=== PATIENT | female | born 1965 | race Caucasian/White ===

== ENCOUNTER 2020-08-17 10:53 | Outpatient (REF) | payer MEDICARE, OTHER, SELFPAY ==
--- NOTE | 2020-08-17 10:58 | MM_ITS ---
EXAMINATION: MM SCREENING DIGITAL BREAST TOMOSYNTHESIS, BILATERAL CLINICAL INFORMATION: Screening. Asymptomatic. Intentional weight loss, 100 lbs since prior exam. The lifetime risk of breast cancer based on the Tyrer-Cuzick Model is 17%. COMPARISON: Mammography: 08/12/2019, 07/21/2017 TECHNIQUE: Digital breast tomosynthesis is performed in both the craniocaudal and mediolateral oblique views along with computer-aided detection (CAD). Synthesized 2D images are generated from the tomosynthesis. Additional exaggerated left CC view is provided. FINDINGS: The breasts are almost entirely fatty (ACR BI-RADS breast composition Category a). The breasts are symmetrically decreased in size consistent with the intentional weight loss history. There is no developing density or interval mass or architectural abnormality. No abnormal calcifications. No significant changes. MM/MM tomosynthesis screening BI IMPRESSION: No mammographic evidence of malignancy. ASSESSMENT: BI-RADS 1: Negative RECOMMENDATION: Routine annual mammography screening. This patient's information was entered into a reminder system with a target due date for their next mammogram.
== END 2020-08-17 10:54 | disposition home or self-care (01) ==
LOC: HO.MAMMO 10:53
PROVIDERS: PCP Nurse Practitioner Family; Visit Provider Nurse Practitioner Family
DX: Z12.31 Encounter for screening mammogram for malignant neoplasm of breast (principal)
CPT/HCPCS: 77063; 77067

== ENCOUNTER 2021-04-10 14:09 | Emergency (ER) | payer MEDICARE, OTHER, SELFPAY ==
[2021-04-10 14:24] VITALS: BP 151/84; PULSE 64; RESP 20; TEMP 37.4; O2SAT 97; BMI 28.1
--- NOTE | 2021-04-10 16:04 | ED.DENTAL ---
HPI - Dental/Oral General Chief complaint: Dental/Oral Stated complaint: DENTAL ISSUE CELLULITIS Time Seen by Provider: 04/10/21 16:04 History of Present Illness HPI Narrative: Patient complains of left lower incisor pain for several days, she was told she will need oral surgery for this tooth, denies any difficulty breathing or swallowing, no swelling under the tongue Related Data Previous Rx's Medication Instructions Recorded penicillin V potassium 500 mg 500 mg PO QID 7 Days #28 tab 04/10/21 tablet Allergies Allergy/AdvReac Type Severity Reaction Status Date / Time morphine [MORPHINE] Allergy Unknown PALPITATION Unverified 06/04/20 15:23 S Review of Systems Review of Systems: Positive for dental pain Negatives are no fever no chills no dizziness no headache no neck pain no sore throat no difficulty breathing or swallowing no skin rash Yes all other systems are reviewed and are negative [facility] Past Medical History Source: nursing notes reviewed Medical History (Updated 04/11/21 @ 00:01 by Maureen Yoder) Asthma Hypertension Social History Social History Advance Directives: No Advance Directives Information Provided: No Physical Exam Vital Signs: Vital Signs: Last Vital Signs Temp 99.4 F 04/10/21 14:24 Pulse 64 04/10/21 14:24 Resp 20 04/10/21 14:24 BP 151/84 H 04/10/21 14:24 Pulse Ox 97 04/10/21 14:24 Body Mass Index 28.1 General appearance is no acute distress Head is normocephalic atraumatic The dental exam there is tenderness and decay to left lower incisor, there is no fluctuant abscess on the gum there is no swelling under the tongue no trismus no impairment of breathing and swallowing The pharynx no redness no exudate, no drooling, voice is normal The neck is supple Respiratory no distress Skin no rashes Course Course Course Narrative: Well-appearing patient with dental caries and possibly dental infection is referred to the dentist Discharge Plan Discharge Clinical Impression: Dental caries Patient Disposition: Home, Self-Care Additional Instructions: Follow with dentist for further evaluation Return any time for fever, worse pain and swelling, any worse condition or any concerns Prescriptions: New penicillin V potassium 500 mg tablet 500 mg PO QID 7 Days Qty: 28 RF: 0 Interventions: ED Discharge Assessment Last Done: 04/10/21 16:23 Discharge Date/Time: 04/10/21 16:24
[2021-04-10] MEDS: Penicillin V Potassium 250 MG TABLET 500 MG PO (16:23)
== END 2021-04-10 16:24 | disposition home or self-care (01) ==
PROVIDERS: Emergency Provider Emergency Medicine; PCP Internal Medicine
DX: K02.9 Dental caries, unspecified (principal); K08.89 Other specified disorders of teeth and supporting structures; I10 Essential (primary) hypertension
CPT/HCPCS: 99283

== ENCOUNTER 2022-06-24 12:31 | Outpatient (REF) | payer MEDICARE, SELFPAY ==
--- NOTE | 2022-06-24 | PFT_ITS ---
Forced vital capacity 112%, FEV1 103%, FEV1/FVC ratio is 71. [id number] 82% and MVV 97%. Post bronchodilator therapy, there is significant improvement in FEV1 by 12% and QAS03-82 by 42%. Total lung capacity 122, and residual volume is 117. Diffusion capacity is 92%. CONCLUSION: There is no evidence of Obstructive or Restrictive Disorder . There is a small but significant positive response to bronchodilator therapy. This finding is consistent with possible mild Bronchial asthma / Reactive Airways . Clinical correlation is recommended. MD MARY Preciado/AVINASH / [id number] MTDD
--- NOTE | ~2022-06-24 | MM_ITS ---
EXAMINATION: MM SCREENING DIGITAL BREAST TOMOSYNTHESIS, BILATERAL CLINICAL INFORMATION: Screening. Asymptomatic. The lifetime risk of breast cancer based on the Tyrer-Cuzick Model is 10%. COMPARISON: Mammography: 07/17/2020, 08/12/2019, 07/21/2017 TECHNIQUE: Digital breast tomosynthesis is performed in both the craniocaudal and mediolateral oblique views along with computer-aided detection (CAD). Synthesized 2D images are generated from the tomosynthesis. Additional bilateral CC and left MLO views are provided. FINDINGS: The breasts are almost entirely fatty (ACR BI-RADS breast composition Category a). Background stromal and fibroglandular densities are similar to prior studies. No developing density or interval mass or architectural abnormality. There are scattered round and rim and dermal calcifications. The axilla and skin contours are unremarkable. No significant changes. MM/MM tomosynthesis screening BI IMPRESSION: No mammographic evidence of malignancy. ASSESSMENT: BI-RADS 2: Benign RECOMMENDATION: Routine annual mammography screening. This patient's information was entered into a reminder system with a target due date for their next mammogram.
[2022-06-24 14:46] LABS: Estimated Average Glucose 94 mg/dL; Hemoglobin A1c % 4.9 %
[2022-06-24 15:01] LABS: Alanine Aminotransferase 7 U/L (0-31); Albumin Level 4.3 g/dL (3.5-5.0); Alkaline Phosphatase 52 U/L (39-117); Anion Gap 17 (12-20); Aspartate Amino Transferase 13 U/L (5-31); Bilirubin Total 0.3 mg/dL (0.0-1.0); Blood Urea Nitrogen 11 mg/dL (9-16); Calcium 9.1 mg/dL (8.4-10.2); Carbon Dioxide 27 mmol/L (22-29); Chloride 104 mmol/L (96-108); Cholesterol 176 mg/dL; Estimated Glomerular Filt Rate > 60; Glucose Random 105 mg/dL (60-115); HDL Cholesterol 69 mg/dL; LDL Cholesterol Calculated 93 mg/dl; Potassium 3.7 mmol/L (3.3-5.1); Sodium 144 mmol/L (135-145); Total Protein 6.8 g/dL (6.5-8.0); Triglycerides 73 mg/dL
== END 2022-06-24 12:32 | disposition home or self-care (01) ==
LOC: HO.MAMMO 12:31
PROVIDERS: PCP Registered Nurse; Visit Provider Registered Nurse
DX: Z12.31 Encounter for screening mammogram for malignant neoplasm of breast (principal); R06.02 Shortness of breath; I10 Essential (primary) hypertension; J44.9 Chronic obstructive pulmonary disease, unspecified; E66.9 Obesity, unspecified
CPT/HCPCS: 36415; 77063; 77067; 80053; 80061; 83036; 94060; 94727; 94729

== ENCOUNTER 2022-11-17 09:09 | Outpatient (REF) | payer MEDICARE, SELFPAY ==
--- NOTE | ~2022-11-17 | XR_ITS ---
EXAMINATION: XR PELVIS CLINICAL INFORMATION: Pain COMPARISON: None TECHNIQUE: AP view of the pelvis. FINDINGS: There is severe loss of right hip joint space with sclerosis and periarticular spurring consistent with severe osteoarthritis; mild loss of left hip joint space is seen. No acute fracture or dislocation involving the pelvic bones. The SI joints are symmetrical. XR/XR pelvis 1-2V IMPRESSION: 1. Severe osteoarthritis right hip joint. 2. Mild degenerative changes left hip joint. 3. No visible acute fracture or dislocation seen.
== END 2022-11-17 09:10 | disposition home or self-care (01) ==
LOC: HO.HOSX 09:09
PROVIDERS: Visit Provider Orthopaedic Surgery
DX: M16.11 Unilateral primary osteoarthritis, right hip (principal)
CPT/HCPCS: 72170; 99202

== ENCOUNTER 2023-01-09 21:13 | Emergency (ER) | payer MEDICARE, SELFPAY ==
[2023-01-09 21:44] VITALS: BP 176/92; PULSE 87; RESP 20; TEMP 36.6; O2SAT 95; BMI 26.7
[2023-01-09 23:29] LABS: MANUAL DIFF FLAG NO
[2023-01-09 23:30] LABS: Basophils Absolute Auto 0.1 X10*3/uL (0.0-0.2); Basophils Percent Auto 0.3 % (0-2); Eosinophils Percent Auto 0.1 % (0-4); Hematocrit 40.2 % (37.0-47.0); Hemoglobin 14.3 g/dl (12.0-16.0); Imm Gran Abs Auto 0.14 X10*3/uL (0.00-0.03); Imm Gran Pct Auto 0.6 % (0.0-0.4); Lymphocytes Absolute Auto 2.1 X10*3/uL (1.2-4.9); Lymphocytes Percent Auto 9.8 % (20-40); Mean Corpuscular HGB Conc 35.6 g/dl (31.0-35.0); Mean Corpuscular Hemoglobin 29.6 pg (27.0-33.0); Mean Corpuscular Volume 83.2 fL (80.0-98.0); Mean Platelet Volume 9.2 fL (9.4-12.3); Monocytes Absolute Auto 1.2 X10*3/uL (0.1-1.2); Monocytes Percent Auto 5.3 % (2-11); Neutrophils Absolute Auto 18.2 x10*3/uL (2.0-8.3); Neutrophils Percent Auto 83.9 % (45-73); Platelet Count 249 X10*3/uL (160-400); Red Blood Count 4.83 X10*6/uL (4.20-5.50); Red Cell Distribution Width 12.3 % (11.0-16.0); White Blood Count 21.7 X10*3/uL (4.8-10.8)
[2023-01-09 23:48] LABS: Anion Gap 13 (12-20); Blood Urea Nitrogen 19 mg/dL (9-16); Calcium 9.2 mg/dL (8.4-10.2); Carbon Dioxide 28 mmol/L (22-29); Chloride 102 mmol/L (96-108); Creatinine Clr Calc Pharmacy 79.1; Estimated Glomerular Filt Rate > 60; Glucose Random 104 mg/dL (60-115); Potassium 2.9 mmol/L (3.3-5.1); Sodium 140 mmol/L (135-145)
--- NOTE | 2023-01-10 01:23 | ED_ITS ---
HPI - Nausea/Vomiting/Diarrhea General Chief complaint: Nausea/Vomiting/Diarrhea Stated complaint: dehydrated, ? abcess right leg Time Seen by Provider: 01/10/23 01:21 Source: patient Mode of arrival: ambulatory Limitations: no limitations History of Present Illness HPI Narrative: increased vomiting, no diarrhea. patient feels dehydrated. IN addition she has noticed that her right lower leg is red MD elicited complaint: nausea and vomiting Severity: mild Related Data Home Medications Medication Instructions Recorded Confirmed amlodipine 10 mg tablet 10 mg PO DAILY 11/17/22 budesonide-formoterol HFA 80 2 puff inhalation Q4-6H PRN dyspnea 11/17/22 mcg-4.5 mcg/actuation aerosol inhaler (Symbicort) citalopram 40 mg tablet 40 mg PO DAILY 11/17/22 clonazepam 0.5 mg tablet 0 mg PO 11/17/22 furosemide 40 mg tablet 40 mg PO DAILY 11/17/22 gabapentin 100 mg capsule 100 mg PO TID 11/17/22 lidocaine 5 % topical patch 0 patch topical 11/17/22 (Lidoderm) lisinopril 40 mg tablet 40 mg PO DAILY 11/17/22 loratadine 10 mg tablet 10 mg PO DAILY PRN 11/17/22 naproxen 500 mg tablet 500 mg PO BID 11/17/22 oxycodone 5 mg tablet 5 mg PO Q8H PRN severe pain 11/17/22 tizanidine 4 mg tablet 4 mg PO Q8H PRN 11/17/22 Previous Rx's Medication Instructions Recorded penicillin V potassium 500 mg 500 mg PO QID 7 days #28 tabs 04/10/21 tablet cephalexin 500 mg capsule 500 mg PO Q6H 7 days #28 caps 01/10/23 ondansetron 4 mg disintegrating 4 mg PO Q8H PRN nausea and 01/10/23 tablet vomiting 5 days #20 tabs Allergies Allergy/AdvReac Type Severity Reaction Status Date / Time morphine [MORPHINE] Allergy Unknown PALPITATION Unverified 06/04/20 15:23 S Review of Systems Review of Systems: Yes all other systems are reviewed and are negative Gastrointestinal: Gastrointestinal: Reports vomiting Integumentary/Breasts: Comments: redness to lower leg Neurologic: Denies Sensory deficit (Neuro) [facility] Past Medical History Medical History (Updated 01/10/23 @ 04:27 by Tre Munson MD) Asthma Hypertension Social History Social History (Updated 11/17/22 @ 11:20 by Patti Daniels CMA) Alcohol intake: never Patient Tobacco Use Status: Current everyday Tobacco user Tobacco use type: Cigarette Cigarette Packs Per Day: 1 Smoked in Last 30 Days: Yes Advance Directives: No Advance Directives Information Provided: Yes Current occupational status: disabled Physical Exam Vital Signs: Vital Signs: Last Vital Signs Temp 99.4 F 01/10/23 03:17 Pulse 62 01/10/23 03:17 Resp 16 01/10/23 03:17 BP 138/66 01/10/23 03:17 Pulse Ox 97 01/10/23 03:17 O2 Del Method Room Air 01/10/23 03:17 BMI result Body Mass Index 26.7 Const: Other: female looking older than stated age Nutritional Appearance: average body habitus Orientation/consciousness: oriented to person and patient oriented x3 Limitations: no limitations HEENT: Head: Yes normal to inspection Ears: external ears normal General nose exam: Normal external nose present Mouth: Normal oral and palatal mucosa present and oropharynx normal Throat: Yes posterior oropharynx normal Eyes: General: appearance normal, both eyes and all related structures Neck: Other: supple Neck: Yes normal visual inspection Chest: Chest palpation & inspection: normal inspection of the chest Resp: Auscultation: clear to auscultation bilaterally Cardio: Jugular venous distension: no JVD Rate: regular rate Rhythm: regular rhythm Heart sounds: S1 normal heart sound present and S2 normal heart sound present GI: Inspection: Yes normal to inspection Palpation (GI): Soft to palpation, nontender and No hepatosplenomegaly present Auscultation: normal bowel sounds : General: Yes no CVA tenderness Back/Spine/Pelvis: Back: no CVA tenderness Skin: Other: right leg with erythema and warmth Neuro: General: oriented to person and patient oriented x3 Cranial nerves: Yes CN's II-XII intact bilaterally Motor exam (neuro): 5/5 motor strength present throughout Sensory Exam: No Sensory deficit (Neuro) Extrem: General: Yes normal to inspection Psych: Appearance: grossly normal Course Reevaluation(s) Reevaluation #1: patient hydrated and given zofran and ancef for cellulitis will dc home Time: 04:21 Medications Administered Discontinued Medications Generic Name Dose Route Start Last Admin Trade Name Freq PRN Reason Stop Dose Admin Amlodipine Besylate 10 mg 01/10/23 01:32 01/10/23 02:12 Amlodipine Besylate 10 Mg Tablet PO 01/10/23 01:33 10 mg ONCE ONE Administration Protocol Sodium Chloride 1,000 mls @ 999 mls/hr 01/10/23 01:30 01/10/23 02:44 Ns IVCONT 01/10/23 03:30 Infused .Q1H1M DEANN Infusion Cefazolin Sodium 1 gm/ Sodium 50 mls @ 100 mls/hr 01/10/23 01:30 01/10/23 02:45 Chloride IV 01/10/23 01:59 Infused ONCE ONE Infusion Lisinopril 40 mg 01/10/23 01:32 01/10/23 02:12 Lisinopril 40 Mg Tablet PO 01/10/23 01:33 40 mg ONCE ONE Administration Protocol Ondansetron HCl 4 mg 01/10/23 01:30 01/10/23 02:10 Ondansetron Hcl 4 Mg/2 Ml Vial IVPUSH 01/10/23 01:31 4 mg ONCE ONE Administration Oxycodone HCl 10 mg 01/10/23 01:33 01/10/23 02:12 Oxycodone Hcl Er 10 Mg Tab.Er.12h PO 01/10/23 01:34 10 mg ONCE ONE Administration Potassium Chloride 40 meq 01/10/23 01:30 01/10/23 02:10 Potassium Chloride Er 20 Meq Tab.Er.Prt PO 01/10/23 01:31 40 meq ONCE ONE Administration Medical Decision Making Differential Diagnosis Differential Diagnoses: The differential diagnosis associated with the presentation includes (nausea, vomiting, cellulitis, dehydration) Admission/Observation Consideration of admission/observation: Escalation of care including admission/observation considered (57 yo female with vomiting, weakness and cellulitis, admission was considered) Lab Data MDM Lab Attestation statement: I reviewed the patient's lab results. (WBC 21.7, clinically not septic, potassium repleted) 01/09/23 23:25 01/09/23 23:25 Labs: Lab Results 01/09/23 01/09/23 01/10/23 Range/Units 23:25 23:25 02:57 WBC 21.7 H (4.8-10.8) X10*3/uL RBC 4.83 (4.20-5.50) X10*6/uL Hgb 14.3 (12.0-16.0) g/dl Hct 40.2 (37.0-47.0) % MCV 83.2 (80.0-98.0) fL MCH 29.6 (27.0-33.0) pg MCHC 35.6 H (31.0-35.0) g/dl RDW 12.3 (11.0-16.0) % Plt Count 249 (160-400) X10*3/uL MPV 9.2 L (9.4-12.3) fL Immature Gran % (Auto) 0.6 H (0.0-0.4) % Neut % (Auto) 83.9 H (45-73) % Lymph % (Auto) 9.8 L (20-40) % [place] % (Auto) 5.3 (2-11) % Eos % (Auto) 0.1 (0-4) % Baso % (Auto) 0.3 (0-2) % Lymph # (Auto) 2.1 (1.2-4.9) X10*3/uL [place] # (Auto) 1.2 (0.1-1.2) X10*3/uL Eos # (Auto) 0.0 (0.0-0.4) X10*3/uL Baso # (Auto) 0.1 (0.0-0.2) X10*3/uL Abs Immat Gran (auto) 0.14 H (0.00-0.03) X10*3/uL Absolute Neuts (auto) 18.2 H (2.0-8.3) x10*3/uL Absolute Nucleated RBC 0.000 (0.0-0.012) X10*3/uL Nucleated RBC % (auto) 0.0 (0.0-0.2) /100WBC Sodium 140 (135-145) mmol/L Potassium 2.9 L D (3.3-5.1) mmol/L Chloride 102 (96-108) mmol/L Carbon Dioxide 28 (22-29) mmol/L Anion Gap 13 (12-20) BUN 19 H (9-16) mg/dL Creatinine 0.88 (0.5-1.4) mg/dL Estim Creat Clear Calc 79.1 Estimated GFR > 60 Random Glucose 104 (60-115) mg/dL Calcium 9.2 (8.4-10.2) mg/dL Urine Color Yellow Urine Appearance Clear Urine pH 6.5 (5.0-9.0) Ur Specific [place] <= 1.005 (1.005-1.025) Urine Protein Negative (Neg-Trace) mg/dL Urine Glucose (UA) Negative (Negative) mg/dL Urine Ketones Negative (Negative) mg/dL Urine Blood Negative (Negative) Urine Nitrite Negative (Negative) Ur Leukocyte Esterase Small (1+) H (Negative) Urine RBC 0-2 (0-2) /HPF Urine WBC 6-10 H (0-5) /HPF Ur Squamous Epith Cells 3-5 (0-2) /HPF Urine Bacteria None Seen (None Seen) Hyaline Casts 0-2 (0-2) /LPF Discharge Plan Discharge Clinical Impression: Cellulitis, Dehydration, Nausea & vomiting Patient Disposition: Home, Self-Care Instructions: Dehydration (ED), Cellulitis (ED), Acute Nausea and Vomiting (ED) Prescriptions: New ondansetron 4 mg tablet,disintegrating 4 mg PO Q8H PRN (Reason: nausea and vomiting) 5 Days Qty: 20 0RF cephalexin 500 mg capsule 500 mg PO Q6H 7 Days Qty: 28 0RF No Action penicillin V potassium 500 mg tablet 500 mg PO QID 7 Days Qty: 28 0RF oxycodone 5 mg tablet 5 mg PO Q8H PRN (Reason: severe pain) tizanidine 4 mg tablet 4 mg PO Q8H PRN budesonide-formoterol [Symbicort] 80-4.5 mcg/actuation HFA aerosol inhaler 2 puff inhalation Q4-6H PRN (Reason: dyspnea) clonazepam 0.5 mg tablet 0 mg PO citalopram 40 mg tablet 40 mg PO DAILY naproxen 500 mg tablet 500 mg PO BID loratadine 10 mg tablet 10 mg PO DAILY PRN gabapentin 100 mg capsule 100 mg PO TID furosemide 40 mg tablet 40 mg PO DAILY amlodipine 10 mg tablet 10 mg PO DAILY lisinopril 40 mg tablet 40 mg PO DAILY lidocaine [Lidoderm] 5 % adhesive patch,medicated 0 patch topical
[2023-01-10 01:29] VITALS: BP 150/83; PULSE 56; RESP 19; TEMP 37.3; O2SAT 97
[2023-01-10] MEDS: 0.9 % Sodium Chloride 1,000 ML 999 ML IVCONT ×2 (01:36→02:13)
[2023-01-10] MEDS: ondansetron HCL 4 MG/2 ML VIAL IVPUSH (02:10)
[2023-01-10] MEDS: Potassium Chloride ER 20 MEQ TAB.ER.PRT 40 MEQ PO (02:10)
[2023-01-10] MEDS: lisinopriL 40 MG TABLET PO (02:12)
[2023-01-10] MEDS: amLODIPine Besylate 10 MG TABLET PO (02:12)
[2023-01-10] MEDS: oxyCODONE HCl ER 10 MG TAB.ER.12H PO (02:12)
[2023-01-10 03:10] LABS: Appearance Urine Clear; Color Urine Yellow; Glucose Urine UA Negative (Negative); Leukocyte Esterase Urine Small (1+) (Negative); Nitrite Urine Negative (Negative); PH 6.5 (5.0-9.0); Specific Gravity - Urine <= 1.005 (1.005-1.025); UMIC TRIGGER UACC YES; Urine Blood Negative (Negative); Urine Ketones Negative (Negative); Urine Protein Negative (Neg-Trace)
[2023-01-10 03:17] VITALS: BP 138/66; PULSE 62; RESP 16; TEMP 37.4; O2SAT 97
[2023-01-10 03:22] LABS: Bacteria Urine None Seen (None Seen); Hyaline Casts Urine 0-2 /LPF (0-2); RBC Urine 0-2 /HPF (0-2); UACC Culture Trigger YES
== END 2023-01-10 04:36 | disposition home or self-care (01) ==
PROVIDERS: Emergency Provider Emergency Medicine; PCP Registered Nurse
DX: L03.115 Cellulitis of right lower limb (principal); E86.0 Dehydration; R11.2 Nausea with vomiting, unspecified; I10 Essential (primary) hypertension; F17.210 Nicotine dependence, cigarettes, uncomplicated; Z79.899 Other long term (current) drug therapy
CPT/HCPCS: 36415; 80048; 81001; 85025; 87086; 96361; 96365; 96375; 99284; 99285; J0690; J2405

== ENCOUNTER 2023-06-30 12:22 | Outpatient (REF) | payer MEDICARE, SELFPAY ==
--- NOTE | ~2023-06-30 | MM_ITS ---
EXAMINATION: MM SCREENING DIGITAL BREAST TOMOSYNTHESIS, BILATERAL CLINICAL INFORMATION: Screening. Asymptomatic. COMPARISON: Mammography: This study is compared with prior exams dating back to 2017. TECHNIQUE: Digital breast tomosynthesis is performed in both the craniocaudal and mediolateral oblique views along with computer-aided detection (CAD). Synthesized 2D images are generated from the tomosynthesis. FINDINGS: The breasts are almost entirely fatty (ACR BI-RADS breast composition Category a). There are no significant masses, abnormal calcifications, or other abnormalities. MM/MM tomosynthesis screening BI IMPRESSION: No mammographic evidence of malignancy. ASSESSMENT: BI-RADS BI-RADS 1 - Negative RECOMMENDATION: Routine annual mammography screening. 1 year F/U This examination should not preclude the clinical evaluation of a suspicious palpable abnormality. This patient's information was entered into a reminder system with a target due date for their next mammogram.
== END 2023-06-30 12:23 | disposition home or self-care (01) ==
LOC: HO.MAMMO 12:22
PROVIDERS: PCP Registered Nurse; Visit Provider Internal Medicine
DX: Z12.31 Encounter for screening mammogram for malignant neoplasm of breast (principal)
CPT/HCPCS: 77063; 77067

== ENCOUNTER → 2023-06-30 12:45 | Outpatient (BNV) | payer MEDICARE, SELFPAY | PROVIDERS: PCP Registered Nurse; Visit Provider Radiology Diagnostic Radiology | DX: Z12.31 Encounter for screening mammogram for malignant neoplasm of breast (principal) | CPT/HCPCS: 77063; 77067 ==

== ENCOUNTER 2024-02-25 13:52 | Inpatient (IN) | payer MEDICARE, SELFPAY ==
--- NOTE | ~2024-02-25 | MR_ITS ---
EXAMINATION: MR ABDOMEN WITHOUT CONTRAST CLINICAL INFORMATION: 58-year-old female with abdominal pain and dilated CBD COMPARISON: Ultrasound from 02/25/2020 TECHNIQUE: MR abdomen is performed without gadolinium contrast. FINDINGS: LUNG BASES: The visualized lung bases are unremarkable. LIVER, GALLBLADDER, AND BILIARY TREE: The liver is normal in size, smooth in contour, and normal in signal. No focal hepatic lesion or biliary ductal dilatation is present. Gallbladder is physiologically distended please numerous small stones, without pericolic cystic fluid collection or wall thickening. The gallbladder lumen measured 7.8 x 3.9 cm. CBD is not occluded by stones or sludge, measured between 0.8 and 0.5 cm PANCREAS: Unremarkable. There is mildly dilated pancreatic duct measured approximately 0.3 cm SPLEEN: Unremarkable. ADRENAL GLANDS: Unremarkable. KIDNEYS AND URETERS: The kidneys are normal in size and shape. No hydronephrosis. No perinephric stranding. GASTROINTESTINAL TRACT: No bowel obstruction. No ascites or fluid collection. 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 ABDOMINAL WALL: No significant hernia is appreciated. LYMPH NODES: No lymphadenopathy. VASCULAR: Unremarkable. OSSEOUS STRUCTURES: Marrow signal normal. MR/MR MRCP IMPRESSION: 1. Cholelithiasis without evidence of acute cholecystitis. 2. CBD not occluded by stones or sludge. 3. 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
--- NOTE | ~2024-02-25 | US_ITS ---
EXAMINATION: US ABDOMEN LIMITED CLINICAL INFORMATION: Right upper quadrant pain. Gallstones? COMPARISON: CT abdomen and pelvis 03/29/2020 TECHNIQUE: Real-time imaging of the right upper quadrant abdominal viscera. FINDINGS: PANCREAS: The pancreas is mostly obscured by overlying bowel gas. The pancreatic duct is normal in caliber. LIVER: The liver is normal in size. The liver contour is normal. Parenchymal echogenicity is increased. No focal hepatic lesion. There is no intrahepatic biliary duct dilatation seen. GALLBLADDER: The gallbladder is physiologically distended with multiple shadowing stones. Bladder wall thickness is within normal limits measuring 0.3 cm. No wall edema. No pericholecystic fluid. Positive sonographic Henry's sign. COMMON BILE DUCT: Mildly dilated measuring 0.9 cm without obstructing stone in the visualized portions. RIGHT KIDNEY: Not visualized FREE FLUID: None. US/US abdomen limited IMPRESSION: 1. Cholelithiasis without secondary signs of acute cholecystitis. Of note sonographic Henry's sign is positive. If there is persistent clinical concern for acute cholecystitis, further evaluation with HIDA scan can be considered. 2. Mildly dilated common bile duct measuring 0.9 cm without obstructing stone in the visualized portions.If there is clinical concern for choledocholithiasis, further evaluation with MRCP can be considered. 3. Increased liver echogenicity which can be seen with hepatic steatosis.
--- NOTE | ~2024-02-25 | NM_ITS ---
EXAMINATION: BILIARY TRACT IMAGING STUDY CLINICAL INDICATION: 58-year-old female with abdominal pain, found to have gallstones on the prior abdominal ultrasound done on 03/06/2024 and also confirmed with subsequent MRCP done on the same day. COMPARISON: Right upper quadrant abdominal ultrasound done on 03/06/2024 and MRCP done on 02/26/2024. TECHNIQUE: Scintillation camera images were obtained over the abdomen for an observation of 60 minutes following the intravenous administration of 5.0 millicuries technetium 99m mebrofenin. Subsequent delayed images were also obtained initially up to 2 hours post injection and finally at 4 hours post injection. FINDINGS: There is good concentration of activity in the liver by 5 minutes post injection. Biliary activity is well visualized by 15 minutes, and there is good visualization of small bowel activity by 25 minutes. The gallbladder remains nonvisualized throughout the entire study up to 4 hours post injection. NM/NM hepatobiliary wo pharm IMPRESSION: 1. Nonvisualized gallbladder on the initial and subsequent delayed 4 hours post injection. In the appropriate clinical setting, the finding would be consistent with acute cholecystitis. Possible differential diagnostic consideration would also include physiologically overdistended versus contracted gallbladder and unlikely to be related to chronic cholecystitis or biliary dyskinesia. 2. Patent common bile duct. 3. Liver function appears normal.
[2024-02-25 14:25] VITALS: BP 129/71; PULSE 74; RESP 16; TEMP 36.6; O2SAT 94; BMI 33.3
[2024-02-25 15:46] LABS: MANUAL DIFF FLAG NO
[2024-02-25 16:01] LABS: Basophils Absolute Auto 0.1 X10*3/uL (0.0-0.2); Basophils Percent Auto 0.7 % (0-2); Eosinophils Absolute Auto 0.1 X10*3/uL (0.0-0.4); Eosinophils Percent Auto 1.4 % (0-4); Hematocrit 36.5 % (37.0-47.0); Hemoglobin 13.4 g/dl (12.0-16.0); Imm Gran Abs Auto 0.05 X10*3/uL (0.00-0.03); Imm Gran Pct Auto 0.6 % (0.0-0.4); Lymphocytes Absolute Auto 2.2 X10*3/uL (1.2-4.9); Lymphocytes Percent Auto 25.3 % (20-40); Mean Corpuscular HGB Conc 36.7 g/dl (31.0-35.0); Mean Corpuscular Hemoglobin 31.1 pg (27.0-33.0); Mean Corpuscular Volume 84.7 fL (80.0-98.0); Mean Platelet Volume 9.2 fL (9.4-12.3); Monocytes Absolute Auto 0.6 X10*3/uL (0.1-1.2); Monocytes Percent Auto 6.8 % (2-11); Neutrophils Absolute Auto 5.8 x10*3/uL (2.0-8.3); Neutrophils Percent Auto 65.2 % (45-73); Platelet Count 317 X10*3/uL (160-400); Red Blood Count 4.31 X10*6/uL (4.20-5.50); Red Cell Distribution Width 12.3 % (11.0-16.0); White Blood Count 8.8 X10*3/uL (4.8-10.8)
--- NOTE | 2024-02-25 16:03 | ED_ITS ---
HPI - General Adult General Chief complaint: Abdominal Pain Stated complaint: Abd pain Time Seen by Provider: 02/25/24 21:22 Source: patient Mode of arrival: ambulatory Limitations: no limitations History of Present Illness ED Provider: Dr. Kevin Puckett HPI narrative: 58-year-old female with a history of hypertension, depression, chronic right hip pain on oxycodone who presents emergency department for evaluation nausea and diarrheal stools for 1-2 week and right upper quadrant pain x 3 days with inability to hold down food or fluid secondary to pain. Patient states that approximately 2 weeks prior she had nausea with 2-3 loose stools per day. She states that over the last 3 days she has had right upper quadrant pain which she describes as a sharp severe pain that does radiate to her back. She states she has not been able to eat any food for 3 days since it exacerbates the pain. She states the pain is 8/10 at its worst of the time my evaluation the pain was 6/10. She denied fever, chills, sore throat, cough, chest pain, shortness of breath. She denied frequency, urgency or dysuria. Related Data Home Medications ?Medication ?Instructions ?Recorded ?Confirmed budesonide-formoterol HFA 80 2 puff inhalation Q4-6H PRN dyspnea 11/17/22 02/26/24 mcg-4.5 mcg/actuation aerosol inhaler (Symbicort) citalopram 40 mg tablet 40 mg PO DAILY 11/17/22 02/26/24 furosemide 40 mg tablet 40 mg PO DAILY 11/17/22 02/26/24 loratadine 10 mg tablet 10 mg PO DAILY Allergy Symptoms 11/17/22 02/26/24 naproxen 500 mg tablet 500 mg PO BID 11/17/22 02/26/24 tizanidine 4 mg tablet 4 mg PO Q8H Muscle Spasm 11/17/22 02/26/24 chlorthalidone 25 mg tablet 25 mg PO QAM 02/26/24 02/26/24 cholecalciferol (vitamin D3) 50 50 mcg PO DAILY 02/26/24 02/26/24 mcg (2,000 unit) capsule (Vitamin D3) diphenhydramine HCl 25 mg tablet 25 mg PO BEDTIME 02/26/24 02/26/24 gabapentin 300 mg capsule 300 mg PO TID 02/26/24 02/26/24 melatonin 10 mg tablet 10 - 20 mg PO BEDTIME 02/26/24 02/26/24 mirtazapine 7.5 mg tablet 7.5 mg PO BEDTIME 02/26/24 02/26/24 nifedipine 30 mg tablet,extended 30 mg PO QAM 02/26/24 02/26/24 release 24 hr olmesartan 40 mg tablet 40 mg PO QAM 02/26/24 02/26/24 oxycodone 15 mg tablet,crush 15 mg PO Q12H 02/26/24 02/26/24 resistant,extended release 12 hr (OxyContin) Allergies Allergy/AdvReac Type Severity Reaction Status Date / Time morphine [MORPHINE] Allergy Unknown PALPITATION Verified 02/25/24 14:28 S Review of Systems 2 Review of Systems: Yes all other systems are reviewed and are negative [facility] Past Medical History [facility] Narrative: Social history: The patient denies alcohol and drug use. She smokes 1 pack of cigarettes per day times 40 years. Medical History Asthma Hypertension Social History Social History Alcohol intake: current Alcohol intake frequency: holidays/special occasions only Patient Tobacco Use Status: Current everyday Tobacco user Tobacco use type: Cigarette Cigarette Packs Per Day: 1 Smoked in Last 30 Days: Yes Use of substances other than those prescribed or required for medical reasons: Yes Substance Use Type: Marijuana Substance Use Frequency: Daily Advance Directives: No Advance Directives Information Provided: No Do you have a plan to hurt others: No Plan Nutrition Risks: No Nutritional Risk Patient : No Current occupational status: disabled Physical Exam ED Vital Signs: Vital Signs - 24 hr 02/25/24 14:25 02/25/24 20:00 02/25/24 22:00 Temperature 97.8 F 99.2 F 98.2 F Pulse Rate 74 65 60 Respiratory Rate 16 Blood Pressure 129/71 146/111 H 139/76 Pulse Oximetry 94 97 95 Oxygen Delivery Method Room Air Room Air Room Air 02/25/24 22:16 Temperature Pulse Rate Respiratory Rate 18 Blood Pressure Pulse Oximetry Oxygen Delivery Method BMI result Body Mass Index 33.3 Vital signs were normal Exam: General: Awake, alert in no distress, weight 90.7 kg, elevated BMI 33.3 Head: Normocephalic, atraumatic EENT: PERRL, Lids normal, sclera normal, conjunctiva normal, nose normal , ears normal, throat without erythema or exudates Neck: Supple, no adenopathy Lung: breath sounds symmetric, no wheezing, rales or rhonchi Chest: symmetric movement, nontender Heart: regular rate and rhythm, normal S1, S2 no murmurs or rubs Abdomen: Mild to moderate right upper quadrant tenderness, negative Henry sign, no rebound, no voluntary or involuntary guarding, normoactive bowel sounds Back: no vertebral tenderness, no CVAT Extremities: no deformities, moves all extremities symmetrically Neuro: Awake, alert, oriented, normal speech Psych: Pleasant, cooperative Course Course Course Narrative: RME: Done by KATHYA Szymanski 58 yold female presents to the ED for RUQ pain. positive RUQ tenderness on palpation. labs ultrasdoun ordered. Medications Administered Generic Name Dose Route Start Last Admin Trade Name Freq PRN Reason Stop Dose Admin Hydromorphone HCl 1 mg 02/25/24 23:11 02/26/24 04:47 Hydromorphone Hcl 1 Mg/Ml Syringe IVPUSH 1 mg Q4H PRN Administration Pain, Severe (Pain Scale 7-10) Protocol Piperacillin Sod/Tazobactam 100 mls @ 200 mls/hr 02/25/24 23:15 02/26/24 06:19 Sod 4.5 gm/ Sodium Chloride IV Infused Q6H DEANN Infusion Sodium Chloride 3 ml 02/26/24 00:00 02/26/24 08:40 0.9 % Sodium Chloride Flush 3 Ml Syringe IVFLUSH 3 ml QSHIFT DEANN Administration Discontinued Medications Generic Name Dose Route Start Last Admin Trade Name Freq PRN Reason Stop Dose Admin Hydromorphone HCl 1 mg 02/25/24 21:43 02/25/24 22:16 Hydromorphone Hcl 1 Mg/Ml Syringe IVPUSH 02/25/24 21:44 1 mg ONCE STA Administration Protocol Hydromorphone HCl 1.5 mg 02/26/24 04:53 02/26/24 05:31 Hydromorphone Hcl 2 Mg/Ml Vial IVPUSH 02/26/24 04:54 1.5 mg ONCE ONE Administration Protocol Sodium Chloride 1,000 mls @ 999 mls/hr 02/25/24 21:43 02/26/24 00:00 Ns IV 02/25/24 22:43 Infused .Q1H1M STA Infusion Potassium Chloride 10 meq in 100 mls @ 100 mls/hr 02/25/24 23:15 02/26/24 05:35 Potassium Chloride/H20 IV 02/26/24 03:14 Infused Q1H DEANN Infusion Nicotine 21 mg 02/25/24 22:58 02/26/24 00:03 Nicotine 21 Mg Patch.Td24 TRANSDERMA 02/25/24 22:59 21 mg ONCE ONE Administration Ondansetron HCl 4 mg 02/25/24 21:43 02/25/24 22:15 Ondansetron Hcl 4 Mg/2 Ml Vial IVPUSH 02/25/24 21:44 4 mg ONCE ONE Administration Medical Decision Making Medical Decision Making MDM Narrative: 58-year-old female with a history of hypertension, depression and chronic right hip pain on oxycodone who presents emergency department for evaluation of 2 weeks of nausea with diarrheal stools and 3 days of right upper quadrant pain with nausea, vomiting inability eat for 3 days secondary to pain. Patient's pain was 8/10 at its worse and 6/10 at the time of my evaluation. Vital signs were normal. Exam did reveal mild to moderate right upper quadrant tenderness with a negative Henry sign otherwise unremarkable. Differential diagnosis: ?Includes but is not limited to acute cholecystitis, choledocholithiasis, pancreatitis, gastritis, GERD, electrolyte abnormalities, anemia Following evaluation was ordered: CBC, CMP, lipase, quantitative beta-hCG, urinalysis, right upper quadrant ultrasound Patient was initially treated with the following: Dilaudid 1 mg IV, Zofran 4 mg IV, normal saline x1 L Course: 21:53 My interpretation patient's laboratory evaluation as follows: WBC was normal 8800. Sodium, potassium and chloride were low 132, 3.2, 93. LFTs were normal. Bilirubin was normal. Lipase was normal. Right upper quadrant ultrasound was positive for gallstones and a positive Henry sign. Common bile duct was mildly dilated at 0.9 mL with no clear stone seen in the duct. Patient has hepatic steatosis The patient's presentation is concerning for acute cholecystitis, given her constant right upper quadrant pain x3 days her right upper quadrant tenderness and her inability to eat x3 days, I will discuss disposition with our covering surgeon. 22:58 I did discuss the patient's presentation with the covering general surgeon, Dr. Grant. She was concerned that the patient may have a retained biliary stone that may be acting as a ball valve letting some bilirubin through and this would explain why her LFTs and bilirubin are normal. She felt that the patient should be admitted for GI consult, MRCP and she will consult for surgery. The patient did feel better after the above treatment. Patient's presentation was discussed over tiger text with the covering hospitalist, Dr. Betancourt. Admission/Observation Consideration of admission/observation: Escalation of care including admission/observation considered Consult Healthcare Provider Management of the patient was discussed with: Hospitalist (Dr. Betancourt) and Record Center Coordinator (Dr. Grant) Lab Data MDM Lab Attestation statement: I reviewed the patient's lab results. 02/26/24 05:33 02/26/24 05:33 Labs: Lab Results 02/25/24 02/25/24 Range/Units 15:39 21:00 WBC 8.8 (4.8-10.8) X10*3/uL RBC 4.31 (4.20-5.50) X10*6/uL Hgb 13.4 (12.0-16.0) g/dl Hct 36.5 L (37.0-47.0) % MCV 84.7 (80.0-98.0) fL MCH 31.1 (27.0-33.0) pg MCHC 36.7 H (31.0-35.0) g/dl RDW 12.3 (11.0-16.0) % Plt Count 317 D (160-400) X10*3/uL MPV 9.2 L (9.4-12.3) fL Immature Gran % (Auto) 0.6 H (0.0-0.4) % Neut % (Auto) 65.2 (45-73) % Lymph % (Auto) 25.3 (20-40) % [place] % (Auto) 6.8 (2-11) % Eos % (Auto) 1.4 (0-4) % Baso % (Auto) 0.7 (0-2) % Lymph # (Auto) 2.2 (1.2-4.9) X10*3/uL [place] # (Auto) 0.6 (0.1-1.2) X10*3/uL Eos # (Auto) 0.1 (0.0-0.4) X10*3/uL Baso # (Auto) 0.1 (0.0-0.2) X10*3/uL Abs Immat Gran (auto) 0.05 H (0.00-0.03) X10*3/uL Absolute Neuts (auto) 5.8 (2.0-8.3) x10*3/uL Absolute Nucleated RBC 0.000 (0.0-0.012) X10*3/uL Nucleated RBC % (auto) 0.0 (0.0-0.2) /100WBC Sodium 132 L (135-145) mmol/L Potassium 3.2 L (3.3-5.1) mmol/L Chloride 93 L (96-108) mmol/L Carbon Dioxide 24 (22-29) mmol/L Anion Gap 18 (12-20) BUN 9 (9-16) mg/dL Creatinine 1.37 (0.5-1.4) mg/dL Estim Creat Clear Calc 50.4 Estimated GFR 40 Random Glucose 93 (60-115) mg/dL Calcium 10.5 H D (8.4-10.2) mg/dL Total Bilirubin 0.5 (0.0-1.0) mg/dL AST 16 (5-31) U/L ALT 8 (0-31) U/L Alkaline Phosphatase 52 (39-117) U/L Total Protein 7.6 (6.5-8.0) g/dL Albumin 4.5 (3.5-5.0) g/dL Lipase 24 (8-78) U/L Beta HCG, Quant 4 mIU/mL Urine Color Yellow Urine Appearance Clear Urine pH 8.5 (5.0-9.0) Ur Specific [place] 1.010 (1.005-1.025) Urine Protein Negative (Neg-Trace) mg/dL Urine Glucose (UA) Negative (Negative) mg/dL Urine Ketones Trace (Negative) mg/dL Urine Blood Negative (Negative) Urine Nitrite Negative (Negative) Ur Leukocyte Esterase Moderate (2+) H (Negative) Urine RBC 0-2 (0-2) /HPF Urine WBC 11-20 H (0-5) /HPF Ur Squamous Epith Cells 3-5 (0-2) /HPF Urine Bacteria Trace (None Seen) Hyaline Casts 0-2 (0-2) /LPF Radiology Impression Discussion of test interpretation with radiology: I have reviewed the radiologist's reading. Radiologist Impression: US abdomen limited IMPRESSION: 1. Cholelithiasis without secondary signs of acute cholecystitis. Of note sonographic Henry's sign is positive. If there is persistent clinical concern for acute cholecystitis, further evaluation with HIDA scan can be considered. 2. Mildly dilated common bile duct measuring 0.9 cm without obstructing stone in the visualized portions.If there is clinical concern for choledocholithiasis, further evaluation with MRCP can be considered. 3. Increased liver echogenicity which can be seen with hepatic steatosis. Dictated By: Mark Douglas Chronic Conditions Patient?s care impacted by: Hypertension Discharge Plan Discharge Clinical Impression: Biliary colic, Common bile duct dilatation Nausea & vomiting Qualifiers: Vomiting type: unspecified Qualified Code(s): R11.2 - Nausea with vomiting, unspecified Diarrhea Qualifiers: Diarrhea type: unspecified type Qualified Code(s): R19.7 - Diarrhea, unspecified Patient Disposition: Admitted As Inpatient
[2024-02-25 16:20] LABS: Alanine Aminotransferase 8 U/L (0-31); Albumin Level 4.5 g/dL (3.5-5.0); Alkaline Phosphatase 52 U/L (39-117); Anion Gap 18 (12-20); Aspartate Amino Transferase 16 U/L (5-31); Bilirubin Total 0.5 mg/dL (0.0-1.0); Blood Urea Nitrogen 9 mg/dL (9-16); Calcium 10.5 mg/dL (8.4-10.2); Carbon Dioxide 24 mmol/L (22-29); Chloride 93 mmol/L (96-108); Creatinine Clr Calc Pharmacy 50.4; Estimated Glomerular Filt Rate 40; Glucose Random 93 mg/dL (60-115); Lipase 24 U/L (8-78); Potassium 3.2 mmol/L (3.3-5.1); Sodium 132 mmol/L (135-145); Total Protein 7.6 g/dL (6.5-8.0)
[2024-02-25 16:21] LABS: HCG Quantitative 4 mIU/mL
[2024-02-25 20:00] VITALS: BP 146/111; PULSE 65; TEMP 37.3; O2SAT 97
[2024-02-25 21:31] LABS: Appearance Urine Clear; Color Urine Yellow; Glucose Urine UA Negative (Negative); Leukocyte Esterase Urine Moderate (2+) (Negative); Nitrite Urine Negative (Negative); PH 8.5 (5.0-9.0); UMIC TRIGGER UACC YES; Urine Blood Negative (Negative); Urine Ketones Trace mg/dL (Negative); Urine Protein Negative (Neg-Trace)
[2024-02-25 21:36] LABS: Bacteria Urine Trace (None Seen); Hyaline Casts Urine 0-2 /LPF (0-2); RBC Urine 0-2 /HPF (0-2); UACC Culture Trigger YES
[2024-02-25 22:00] VITALS: BP 139/76; PULSE 60; TEMP 36.8; O2SAT 95
[2024-02-25] MEDS: ondansetron HCL 4 MG/2 ML VIAL IVPUSH (22:15)
[2024-02-25 22:16] VITALS: RESP 18
[2024-02-25] MEDS: HYDROmorphone HCl 1 MG/ML SYRINGE IVPUSH (22:16)
[2024-02-25] MEDS: 0.9 % Sodium Chloride 1,000 ML 999 ML IV (22:18)
--- NOTE | 2024-02-25 23:10 | P.HPHOSP_ITS ---
History of Present Illness Date of Service: 02/25/24 Chief Complaint: Abdominal pain This is a 58-year-old female with pertinent history of asthma not on home oxygen, mood disorder, hypertension who presents to the emergency department for evaluation of abdominal pain. Patient states she has been having diarrhea and nausea that started 2 weeks ago. The diarrhea is now resolved. Patient started having right upper quadrant pain 3 days prior to presentation. It is intermittent and worse with p.o. intake. It is nonradiating and without any relieving factors. Never has had similar pain in the past. Unable to tolerate p.o. intake. Patient states the pain is progressively worse and was severe on the day of presentation and hence she decided to come to the ER. No fever, chills, chest discomfort, palpitations, shortness of breath, changes in urinary or bowel habits. The emergency department, sonographic Henry signs positive and cholelithiasis seen with dilated common bile duct. Review of Systems 2 Constitutional: Constitutional: Reports fatigue and Reports poor appetite Respiratory: Respiratory: Reports no additional respiratory complaints Gastrointestinal: Gastrointestinal: Reports diarrhea, Reports nausea and Reports vomiting Genitourinary: Genitourinary: Reports no additional female genitourinary complaints Endocrine: Endocrine: Reports fatigue PMFSH Medical History Asthma Hypertension Pertinent family history: No family history of early CAD Social History Alcohol intake: never Patient Tobacco Use Status: Current everyday Tobacco user Tobacco use type: Cigarette Cigarette Packs Per Day: 1 Advance Directives: No Advance Directives Information Provided: No Do you have a plan to hurt others: No Plan Current occupational status: disabled Meds Allergies Allergy/AdvReac Type Severity Reaction Status Date / Time morphine [MORPHINE] Allergy Unknown PALPITATION Verified 02/25/24 14:28 S Home Medications ?Medication ?Instructions ?Recorded ?Confirmed ?Last Taken ?Type amlodipine 10 mg tablet 10 mg PO DAILY 11/17/22 02/26/24 Unknown History budesonide-formoterol HFA 80 2 puff inhalation Q4-6H PRN dyspnea 11/17/22 02/26/24 Unknown History mcg-4.5 mcg/actuation aerosol inhaler (Symbicort) citalopram 40 mg tablet 40 mg PO DAILY 11/17/22 02/26/24 Unknown History furosemide 40 mg tablet 40 mg PO DAILY 11/17/22 02/26/24 Unknown History gabapentin 100 mg capsule 300 mg PO TID 11/17/22 02/26/24 Unknown History (Neurontin) lidocaine 5 % topical patch 0 patch topical 11/17/22 Unknown History (Lidoderm) lisinopril 40 mg tablet 40 mg PO DAILY 11/17/22 02/26/24 Unknown History loratadine 10 mg tablet 10 mg PO DAILY PRN Allergy Symptoms 11/17/22 02/26/24 Unknown History naproxen 500 mg tablet 500 mg PO BID 11/17/22 02/26/24 Unknown History oxycodone 5 mg tablet 15 mg PO Q8H PRN severe pain 11/17/22 02/26/24 Unknown History tizanidine 4 mg tablet 4 mg PO Q8H PRN Muscle Spasm 11/17/22 02/26/24 Unknown History chlorthalidone 25 mg tablet 25 mg PO QAM 02/26/24 02/26/24 Unknown History mirtazapine 7.5 mg tablet 7.5 mg PO BEDTIME 02/26/24 02/26/24 Unknown History nifedipine 30 mg tablet,extended 30 mg PO QAM 02/26/24 02/26/24 Unknown History release 24 hr Physical Exam 2 Vital Signs and Narrative: Vital Signs: Last Vital Signs Temp 98.2 F 02/25/24 22:00 Pulse 60 02/25/24 22:00 Resp 18 02/25/24 22:16 BP 139/76 02/25/24 22:00 Pulse Ox 95 02/25/24 22:00 O2 Del Method Room Air 02/25/24 22:00 BMI result Body Mass Index 33.3 Middle-aged female lying in bed in no distress Neck supple, no JVD Regular rate and rhythm, S1-S2 heard Regular breath sounds bilaterally, no wheezing or crackles appreciated Abdomen with right upper quadrant tenderness, no guarding, no rigidity Patient is awake, alert and oriented to self, place, time and person ; no focal motor deficit Psych: Normal mood No pedal edema Results Labs 02/25/24 15:39 02/25/24 15:39 Labs: Laboratory Results - last 24 hr 02/25/24 02/25/24 15:39 21:00 MCV 84.7 MCH 31.1 MCHC 36.7 H RDW 12.3 Plt Count 317 D MPV 9.2 L Immature Gran % (Auto) 0.6 H Neut % (Auto) 65.2 Lymph % (Auto) 25.3 [place] % (Auto) 6.8 Eos % (Auto) 1.4 Baso % (Auto) 0.7 Lymph # (Auto) 2.2 [place] # (Auto) 0.6 Eos # (Auto) 0.1 Baso # (Auto) 0.1 Abs Immat Gran (auto) 0.05 H Absolute Neuts (auto) 5.8 Absolute Nucleated RBC 0.000 Nucleated RBC % (auto) 0.0 Anion Gap 18 Estim Creat Clear Calc 50.4 Estimated GFR 40 Random Glucose 93 Calcium 10.5 H D Total Bilirubin 0.5 AST 16 ALT 8 Alkaline Phosphatase 52 Total Protein 7.6 Albumin 4.5 Lipase 24 Beta HCG, Quant 4 Urine Color Yellow Urine Appearance Clear Urine pH 8.5 Ur Specific [place] 1.010 Urine Protein Negative Urine Glucose (UA) Negative Urine Ketones Trace Urine Blood Negative Urine Nitrite Negative Ur Leukocyte Esterase Moderate (2+) H Urine RBC 0-2 Urine WBC 11-20 H Ur Squamous Epith Cells 3-5 Urine Bacteria Trace Hyaline Casts 0-2 Imaging Radiologist's Impressions: Impressions Abdomen Ultrasound 02/25/24 15:23 IMPRESSION: 1. Cholelithiasis without secondary signs of acute cholecystitis. Of note sonographic Henry's sign is positive. If there is persistent clinical concern for acute cholecystitis, further evaluation with HIDA scan can be considered. 2. Mildly dilated common bile duct measuring 0.9 cm without obstructing stone in the visualized portions.If there is clinical concern for choledocholithiasis, further evaluation with MRCP can be considered. 3. Increased liver echogenicity which can be seen with hepatic steatosis. Assessment and Plan (1) Biliary colic: Status: Acute (2) Common bile duct dilatation: Status: Acute Plan This is a 58-year-old female with pertinent history of asthma not on home oxygen, mood disorder, hypertension who presents to the emergency department for evaluation of abdominal pain. #. Biliary colic with concerns for acute calculous cholecystitis. Will admit patient with empiric IV antibiotics. Dilated CBD noted on ultrasound. Will obtain MRCP to rule out CBD stone. GI consult in case of choledocholithiasis pending MRCP results. IV opioids p.r.n. for pain control. Also obtaining HIDA. General surgery consulted #. Hypokalemia due to GI losses: Repleted #. Asthma: No decompensation during admission. Continue home inhaler #. Mood disorder: Continue home mood stabilizers #. Hypertension: Continue home antihypertensives Med rec pending DVT prophylaxis: Mechanical Full code Admit as inpatient and will require two night minimum hospital stay for IV antibiotics, IV opiates (as above), which is not possible in a lesser acute setting. Surgical consult pending Quality Stroke Does the patient have a stroke diagnosis?: No VTE Prior VTE?: No VTE Risk Level:: Medical - moderate - high VTE Device Contraindication: N/A - Device Ordered VTE Drug Contraindication: Treatment Not Indicated
[2024-02-26] VITALS (8 sets, daily range): BP systolic 96–132; BP diastolic 52–63; PULSE 53–58; RESP 16–20; TEMP 36.2–36.9; O2SAT 90–98
[2024-02-26] MEDS: Piperacillin Sodium/Tazobactam 4.5 GM in 0.9 % Sodium Chloride 100 ML IV ×5 (00:01→22:25)
[2024-02-26] MEDS: Nicotine 21 MG PATCH.TD24 TRANSDERMA (00:03)
[2024-02-26] MEDS: Potassium Chloride/H20 10 MEQ/100 ML PIGGYBACK 100 MEQ IV ×4 (00:04→02:58)
[2024-02-26] MEDS: 0.9 % Sodium Chloride Flush 3 ML SYRINGE IVFLUSH ×4 (00:38→22:25)
[2024-02-26] MEDS: HYDROmorphone HCl 1 MG/ML SYRINGE IVPUSH ×5 (00:41→19:24)
--- NOTE | 2024-02-26 04:19 | MHC.EDTECH ---
This tech took over care of patient at this time,hourly rounds completed,call clement in reach
--- NOTE | 2024-02-26 04:50 | PC.NURSE ---
this rn assumed care of pt, pt transported from em to main ed. pt at this time reporting 7/10 abdominal pain, pt medicated per nov. no acute distress noted.
--- NOTE | 2024-02-26 04:58 | PC.NURSE ---
pt reporting prn medication does not work, placed one time order, okayed to give in 30 minutes.
[2024-02-26] MEDS: HYDROmorphone HCl 2 MG/ML VIAL 1.5 MG IVPUSH (05:31)
[2024-02-26 05:46] LABS: MANUAL DIFF FLAG NO
[2024-02-26 05:56] LABS: Basophils Absolute Auto 0.1 X10*3/uL (0.0-0.2); Basophils Percent Auto 0.7 % (0-2); Eosinophils Absolute Auto 0.2 X10*3/uL (0.0-0.4); Eosinophils Percent Auto 2.1 % (0-4); Hematocrit 33.6 % (37.0-47.0); Hemoglobin 12.3 g/dl (12.0-16.0); Imm Gran Abs Auto 0.05 X10*3/uL (0.00-0.03); Imm Gran Pct Auto 0.6 % (0.0-0.4); Lymphocytes Absolute Auto 2.9 X10*3/uL (1.2-4.9); Lymphocytes Percent Auto 36.4 % (20-40); Mean Corpuscular HGB Conc 36.6 g/dl (31.0-35.0); Mean Corpuscular Hemoglobin 31.5 pg (27.0-33.0); Mean Corpuscular Volume 85.9 fL (80.0-98.0); Mean Platelet Volume 9.2 fL (9.4-12.3); Monocytes Absolute Auto 0.7 X10*3/uL (0.1-1.2); Monocytes Percent Auto 8.3 % (2-11); Neutrophils Absolute Auto 4.2 x10*3/uL (2.0-8.3); Neutrophils Percent Auto 51.9 % (45-73); Platelet Count 274 X10*3/uL (160-400); Red Blood Count 3.91 X10*6/uL (4.20-5.50); Red Cell Distribution Width 12.5 % (11.0-16.0); White Blood Count 8.1 X10*3/uL (4.8-10.8)
[2024-02-26 06:13] LABS: Anion Gap 12 (12-20); Blood Urea Nitrogen 8 mg/dL (9-16); Calcium 9.3 mg/dL (8.4-10.2); Carbon Dioxide 23 mmol/L (22-29); Chloride 102 mmol/L (96-108); Estimated Glomerular Filt Rate 49; Glucose Random 86 mg/dL (60-115); Potassium 3.4 mmol/L (3.3-5.1); Sodium 134 mmol/L (135-145)
--- NOTE | 2024-02-26 06:17 | PC.NURSE ---
Addendum entered by Bridgett De La Garza 02/26/24 06:18: aware Original Note: at this time, pt reports pain medication is not working, reports constant 7/10 abdominal pain.
--- NOTE | 2024-02-26 06:33 | MHC.EDTECH ---
Hourly rounds and vitals completed,call clement in reach
--- NOTE | 2024-02-26 07:33 | PM.CNGS ---
History of Present Illness Consult details Consult date: 02/26/24 Narrative: Patient is a 58-year-old female who presents with a history of 2 weeks of nonspecific abdominal complaints which over the last 2-3 days which had associated nausea and vomiting and loose stool/diarrhea which has resolved. Now her symptoms have become right upper quadrant abdominal pain radiating around to her back. She does not recall having such symptoms before. She denies any history of jaundice. She is unclear if she has fatty food intolerance per se. Chart was reviewed and patient evaluated. Mood disorder, hypertension. Labs essentially within normal limits PMFSH Past Medical History Medical History Asthma Hypertension Social History Social History Alcohol intake: current Alcohol intake frequency: holidays/special occasions only Patient Tobacco Use Status: Current everyday Tobacco user Tobacco use type: Cigarette Cigarette Packs Per Day: 1 Smoked in Last 30 Days: Yes Use of substances other than those prescribed or required for medical reasons: Yes Substance Use Type: Marijuana Substance Use Frequency: Daily Advance Directives: No Advance Directives Information Provided: No Do you have a plan to hurt others: No Plan Nutrition Risks: No Nutritional Risk Patient : No Current occupational status: disabled Meds Allergies Allergy/AdvReac Type Severity Reaction Status Date / Time morphine [MORPHINE] Allergy Unknown PALPITATION Verified 02/25/24 14:28 S Active Medications: Current Medications Acetaminophen (Acetaminophen 325 Mg Tablet) 650 mg PO Q6H PRN PRN Reason: Pain, Mild (Pain Scale 1-3) Hydromorphone HCl (Hydromorphone Hcl 1 Mg/Ml Syringe) 1 mg IVPUSH Q4H PRN; Protocol PRN Reason: Pain, Severe (Pain Scale 7-10) Last Admin: 02/26/24 04:47 Dose: 1 mg Piperacillin Sod/Tazobactam (Sod 4.5 gm/ Sodium Chloride) 100 mls @ 200 mls/hr IV Q6H [facility] Last Infusion: 02/26/24 06:19 Dose: Infused Melatonin (Melatonin 3 Mg Tablet) 6 mg PO BEDTIME PRN PRN Reason: Insomnia Ondansetron HCl (Ondansetron Hcl 4 Mg/2 Ml Vial) 4 mg IVPUSH Q8H PRN PRN Reason: Nausea and Vomiting Sodium Chloride (0.9 % Sodium Chloride Flush 3 Ml Syringe) 3 ml IVFLUSH QSHIFT [facility] Last Admin: 02/26/24 00:38 Dose: 3 ml Home Medications ?Medication ?Instructions ?Recorded ?Confirmed ?Last Taken ?Type amlodipine 10 mg tablet 10 mg PO DAILY 11/17/22 02/26/24 Unknown History budesonide-formoterol HFA 80 2 puff inhalation Q4-6H PRN dyspnea 11/17/22 02/26/24 Unknown History mcg-4.5 mcg/actuation aerosol inhaler (Symbicort) citalopram 40 mg tablet 40 mg PO DAILY 11/17/22 02/26/24 Unknown History furosemide 40 mg tablet 40 mg PO DAILY 11/17/22 02/26/24 Unknown History gabapentin 100 mg capsule 300 mg PO TID 11/17/22 02/26/24 Unknown History (Neurontin) lidocaine 5 % topical patch 0 patch topical 11/17/22 Unknown History (Lidoderm) lisinopril 40 mg tablet 40 mg PO DAILY 11/17/22 02/26/24 Unknown History loratadine 10 mg tablet 10 mg PO DAILY PRN Allergy Symptoms 11/17/22 02/26/24 Unknown History naproxen 500 mg tablet 500 mg PO BID 11/17/22 02/26/24 Unknown History oxycodone 5 mg tablet 15 mg PO Q8H PRN severe pain 11/17/22 02/26/24 Unknown History tizanidine 4 mg tablet 4 mg PO Q8H PRN Muscle Spasm 11/17/22 02/26/24 Unknown History chlorthalidone 25 mg tablet 25 mg PO QAM 02/26/24 02/26/24 Unknown History mirtazapine 7.5 mg tablet 7.5 mg PO BEDTIME 02/26/24 02/26/24 Unknown History nifedipine 30 mg tablet,extended 30 mg PO QAM 02/26/24 02/26/24 Unknown History release 24 hr Physical Exam Vital Signs: Vital Signs: Last Vital Signs Temp 97.8 F 02/26/24 06:32 Pulse 56 02/26/24 06:32 Resp 18 02/26/24 06:32 BP 105/52 L 02/26/24 06:32 Pulse Ox 97 02/26/24 06:32 O2 Del Method Room Air 02/26/24 06:32 BMI result Body Mass Index 33.3 Chest: Other: Chest breath sounds bilaterally, HS 1 in 2 GI: Other: Abdomen very corpulent, mild right upper quadrant tenderness. No evidence of any guarding, rebound, or rigidity. Results Labs 02/26/24 05:33 02/26/24 05:33 Labs: Abnormal lab results 02/25/24 02/25/24 02/26/24 Range/Units 15:39 21:00 05:33 RBC 3.91 L (4.20-5.50) X10*6/uL Hct 36.5 L 33.6 L (37.0-47.0) % MCHC 36.7 H 36.6 H (31.0-35.0) g/dl MPV 9.2 L 9.2 L (9.4-12.3) fL Immature Gran % (Auto) 0.6 H 0.6 H (0.0-0.4) % Abs Immat Gran (auto) 0.05 H 0.05 H (0.00-0.03) X10*3/uL Sodium 132 L 134 L (135-145) mmol/L Potassium 3.2 L (3.3-5.1) mmol/L Chloride 93 L (96-108) mmol/L BUN 8 L (9-16) mg/dL Calcium 10.5 H D (8.4-10.2) mg/dL Ur Leukocyte Esterase Moderate (2+) H (Negative) Urine WBC 11-20 H (0-5) /HPF Short CBC 02/25/24 02/26/24 Range/Units 15:39 05:33 WBC 8.8 8.1 (4.8-10.8) X10*3/uL Hgb 13.4 12.3 (12.0-16.0) g/dl Hct 36.5 L 33.6 L (37.0-47.0) % Plt Count 317 D 274 (160-400) X10*3/uL BMP 02/25/24 02/26/24 15:39 05:33 Sodium 132 L 134 L Potassium 3.2 L 3.4 Chloride 93 L 102 Carbon Dioxide 24 23 BUN 9 8 L Creatinine 1.37 1.15 Calcium 10.5 H D 9.3 D Liver Function 02/25/24 Range/Units 15:39 Total Bilirubin 0.5 (0.0-1.0) mg/dL AST 16 (5-31) U/L ALT 8 (0-31) U/L Alkaline Phosphatase 52 (39-117) U/L Albumin 4.5 (3.5-5.0) g/dL Urine 02/25/24 Range/Units 21:00 Urine Color Yellow Urine Appearance Clear Urine pH 8.5 (5.0-9.0) Ur Specific [place] 1.010 (1.005-1.025) Urine Protein Negative (Neg-Trace) mg/dL Urine Glucose (UA) Negative (Negative) mg/dL All other labs normal. Assessment and Plan (1) Common bile duct dilatation: Status: Acute (2) Biliary colic: Status: Acute Plan Ultrasound demonstrated cholelithiasis. Patient also has dilation of her common bile duct. She is tentatively scheduled for both HIDA scan and an MRCP. Further interventions and studies will be directed by the patient's clinical course and the results of the above-mentioned studies. Procedures Date of Service Date of Service: 02/26/24
--- NOTE | 2024-02-26 08:15 | PHA.MEDREC ---
Pharmacy Consult ? Medication Reconciliation Pharmacy has completed the medication reconciliation. spoke with patient to confirm medications. The only medication she takes as needed is symbicort.
[2024-02-26 08:48] LABS: Alanine Aminotransferase 10 U/L (0-31); Alkaline Phosphatase 47 U/L (39-117); Aspartate Amino Transferase 21 U/L (5-31); Bilirubin Direct 0.2 mg/dL (0.0-0.5); Bilirubin Total 0.6 mg/dL (0.0-1.0); C Reactive Protein < 0.10 mg/dL (< or = 0.50); Total Protein 6.7 g/dL (6.5-8.0)
--- NOTE | 2024-02-26 08:51 | PC.NURSE ---
Pt currently in MRI
[2024-02-26] MEDS: Escitalopram Oxalate 20 MG TABLET PO (10:09)
[2024-02-26] MEDS: oxyCODONE HCl ER 10 MG TAB.ER.12H PO ×2 (10:09→21:21)
[2024-02-26] MEDS: Loratadine 10 MG TABLET PO (10:10)
[2024-02-26] MEDS: Gabapentin 300 MG CAPSULE PO ×2 (10:10→21:21)
[2024-02-26] MEDS: Cholecalciferol (Vitamin D3) 25 MCG TABLET 50 MCG PO (10:10)
[2024-02-26] MEDS: TiZANidine HCL 4 MG TABLET PO ×2 (11:51→23:44)
--- NOTE | 2024-02-26 12:03 | PC.NURSE ---
this RN resumed care of pt at 1100. a&ox4. vss and up to date. pt verbalizing no pain at this time s/p previous medication administration. delay in medication administration d/t med not being available in [facility]. medication now administered per provider order since delivered from pharmacy. pt remains NPO aside from extremely small sips of water w/ PO medication. per previous RN - medication ok'd to administer via PO w/ water by admitting provider. pt verbalizes no water intake since yesterday around noon and no food consumption x 3 days aside from 1 popsicle. pt aware of plan of care moving forward in regards to being admitted/getting nuclear med scan performed around 1500. pt resting comfortably in bed inn no apparent distress. no sob/wob noted. respirations even/unlabored. partner bedside for support. call clement placed within reach.
--- NOTE | 2024-02-26 12:22 | PM.EVENT ---
Event Note Date of Service: 02/26/24 Event Note: Day hospitalist update S: feels better; RUQ a little sore; no N/V; no fever did eat a fatty meal prior to all of her symptoms starting O: Temp Pulse Resp BP Pulse Ox O2 Del Method 97.8 F 56 20 105/52 L 97 Room Air 02/26/24 06:32 02/26/24 06:32 02/26/24 10:10 02/26/24 06:32 02/26/24 06:32 02/26/24 06:32 Gen: in no acute distress HEENT: sclera anicteric, moist mucus membranes Neck: supple Lungs: clear to auscultation bilaterally Heart: regular rate and rhythm, no murmurs Abd: soft, RUQ minimally tender, Henry's negative, non-distended Ext: no edema Skin: warm/well-perfused Neuro: alert and oriented x3, no focal findings Psych: appropriate affect Impressions Abdomen Ultrasound 02/25/24 15:23 IMPRESSION: 1. Cholelithiasis without secondary signs of acute cholecystitis. Of note sonographic Henry's sign is positive. If there is persistent clinical concern for acute cholecystitis, further evaluation with HIDA scan can be considered. 2. Mildly dilated common bile duct measuring 0.9 cm without obstructing stone in the visualized portions.If there is clinical concern for choledocholithiasis, further evaluation with MRCP can be considered. 3. Increased liver echogenicity which can be seen with hepatic steatosis. Cholangiopancreatography MRI 02/26/24 09:08 IMPRESSION: 1. Cholelithiasis without evidence of acute cholecystitis. 2. CBD not occluded by stones or sludge. 3. 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 A/P: d1 58yo F with asthma not on home O2, mood disorder, HTN presenting with 3d of nausea/vomitinig and RUQ pain, concerning for cholecystitis cholelithiasis with biliary colic dilated CBD - MRCP with normal CBD, HIDA pending, Surgery + GI consulted - currently NPO + on Zosyn but if HIDA negative, will advance diet and d/c antibiotics hypoK - repleted mood disorder - escitalopram, mirtazapine chronic pain - oxycodone, tizanidine, gabapentin VTE ppx - SCDs dispo - eventual home In my clinical judgment, the patient requires continued hospitalization for the following reasons: work up for acute cholecystitis + choledocholithiasis Time Spent With Patient Time: Total time managing care of this patient today ____ minutes.
--- NOTE | 2024-02-26 14:34 | PC.NURSE ---
admission worksheet complete. pt being transported upstairs at this time.
--- NOTE | 2024-02-26 16:26 | MHC.CM.PN ---
CM ATTEMPTED TO SEE PT X2 PT OFF UNIT FOR A SCAN CM TO REVISIT
[2024-02-26] MEDS: LORazepam 1 MG TABLET PO (19:22)
[2024-02-26] MEDS: diphenhydrAMINE HCL 25 MG CAPSULE PO (21:21)
[2024-02-26] MEDS: Mirtazapine 7.5 MG TABLET PO (21:21)
[2024-02-26] MEDS: ondansetron HCL 4 MG/2 ML VIAL IVPUSH (21:24)
--- NOTE | 2024-02-27 02:12 | CONS_ITS ---
DATE OF SERVICE: 02/26/2024 REFERRING PHYSICIAN: Dr. Sinha REASON FOR CONSULTATION: Dilated common bile duct. HISTORY OF PRESENT ILLNESS: Poly is a very pleasant 58-year-old woman who was admitted to the hospital after presenting to the emergency room yesterday with complaints of abdominal pain. She reports of a 2-week history of some GI symptoms with nausea without vomiting and some diarrhea, which was nonbloody intermittently over the last 2 weeks and developed some right upper quadrant pain several days prior to admission, which radiated around into the back and prompted her emergency room presentation. She denies any fevers or chills. In the emergency department, she was evaluated with laboratory studies, which showed normal liver function tests. Ultrasound imaging was subsequently obtained, which was reviewed and is interpreted as showing mild biliary ductal dilation to 9 mm. Gallstones were noted in the gallbladder and a sonographic Henry sign was present. She subsequently underwent MRI, which is reviewed. This showed no common bile duct stones and measured the CBD between 5 and 8 mm. PAST MEDICAL HISTORY: 1. Asthma. 2. Hypertension. 3. Mood disorder. 4. Osteoarthritis. CURRENT MEDICATIONS: List is reviewed in the chart. ALLERGIES: MORPHINE. FAMILY HISTORY: This is reviewed with the patient and is noncontributory. SOCIAL HISTORY: She does smoke. She denies other substance use. REVIEW OF SYSTEMS: SKIN: No pruritus. HEENT: Negative. CARDIOPULMONARY: No shortness of breath or chest pain. GASTROINTESTINAL: As above. GENITOURINARY: Negative. NEUROPSYCHIATRIC: Negative. PHYSICAL EXAMINATION: GENERAL: Shows a pleasant female, lying comfortably in bed. VITAL SIGNS: Reviewed in electronic medical record and are stable. SKIN: Anicteric. HEENT: Shows no scleral icterus. NECK: Without lymphadenopathy or thyromegaly. LUNGS: Clear. HEART: Shows regular rate and rhythm. S1, S2. No murmur. ABDOMEN: Soft without focal masses or tenderness. Bowel sounds are present. No organomegaly is noted. EXTREMITIES: Without edema. LABORATORY DATA AND IMAGING STUDIES: Reviewed. IMPRESSION: Abnormal ultrasound of the biliary tree. I discussed with her that her MRI, which is more sensitive that examining the bile duct in total looks normal and no stones were seen in the common bile duct. I did discuss ERCP with her but I am not recommending this currently. She is being evaluated from a surgical standpoint and will likely need a cholecystectomy during this hospitalization. Thanks for asking me to see her. I will follow her in the hospital with you. MD CHARLOTTE Magaña/AVINASH / [phone]
[2024-02-27 03:38] VITALS: BP 140/98; PULSE 78; RESP 17; TEMP 36.2; O2SAT 92
[2024-02-27] MEDS: Piperacillin Sodium/Tazobactam 4.5 GM in 0.9 % Sodium Chloride 100 ML IV (04:37)
[2024-02-27 06:24] LABS: Alanine Aminotransferase 12 U/L (0-31); Alkaline Phosphatase 44 U/L (39-117); Anion Gap 17 (12-20); Aspartate Amino Transferase 22 U/L (5-31); Bilirubin Total 0.5 mg/dL (0.0-1.0); Blood Urea Nitrogen 12 mg/dL (9-16); Calcium 9.4 mg/dL (8.4-10.2); Carbon Dioxide 26 mmol/L (22-29); Chloride 102 mmol/L (96-108); Creatinine Clr Calc Pharmacy 45.1; Estimated Glomerular Filt Rate 35; Glucose Random 71 mg/dL (60-115); Potassium 3.7 mmol/L (3.3-5.1); Sodium 141 mmol/L (135-145); Total Protein 6.7 g/dL (6.5-8.0)
[2024-02-27 06:27] LABS: Hematocrit 35.5 % (37.0-47.0); Hemoglobin 12.3 g/dl (12.0-16.0); Mean Corpuscular HGB Conc 34.6 g/dl (31.0-35.0); Mean Corpuscular Hemoglobin 30.8 pg (27.0-33.0); Mean Corpuscular Volume 88.8 fL (80.0-98.0); Mean Platelet Volume 9.5 fL (9.4-12.3); Platelet Count 281 X10*3/uL (160-400); Red Cell Distribution Width 12.6 % (11.0-16.0); White Blood Count 7.3 X10*3/uL (4.8-10.8)
[2024-02-27] MEDS: 0.9 % Sodium Chloride Flush 3 ML SYRINGE IVFLUSH ×2 (07:04→22:18)
[2024-02-27 07:07] VITALS: BP 146/79; PULSE 70; RESP 16; TEMP 36.4; O2SAT 95
[2024-02-27] MEDS: Gabapentin 300 MG CAPSULE PO ×3 (08:18→21:00)
[2024-02-27] MEDS: Cholecalciferol (Vitamin D3) 25 MCG TABLET 50 MCG PO (08:19)
[2024-02-27] MEDS: TiZANidine HCL 4 MG TABLET PO ×3 (08:19→23:43)
[2024-02-27] MEDS: oxyCODONE HCl ER 10 MG TAB.ER.12H PO ×2 (08:19→21:03)
[2024-02-27] MEDS: Loratadine 10 MG TABLET PO (08:19)
[2024-02-27] MEDS: Escitalopram Oxalate 20 MG TABLET PO (08:19)
[2024-02-27] MEDS: HYDROmorphone HCl 1 MG/ML SYRINGE IVPUSH ×3 (08:32→22:18)
[2024-02-27] MEDS: Lactated Ringers 1,000 ML 150 ML IVCONT ×2 (08:36→17:16)
--- NOTE | 2024-02-27 09:51 | MHC.CM.PN ---
IMM DELIVERED. PATIENT LIVES IN A HOME W/ . AMBULATES W/ A ROLLATOR. OTHERWISE INDEPENDENT. PCP [facility] STATISTICAL TECHNICIAN NO HCP. CM PROVIDED EDUCATION AND OFFERED ASSISTANCE. PATIENT DECLINED. DP: HOME SELF CARE, TO TRANSPORT. DO NOT ANTICIPATE THE NEED FOR SERVICES. CM WILL CONTINUE TO FOLLOW.
--- NOTE | 2024-02-27 10:08 | P.PNIM_ITS ---
Subjective Subjective Date of Service: 02/27/24 Interval History: very minimal RUQ pain; no N/V/fever/diarrhea Review of Systems Review of Systems: Yes all other systems are reviewed and are negative Physical Exam 2 Vital Signs: Vital Signs: Last Vital Signs Temp 97.5 F 02/27/24 07:07 Pulse 70 02/27/24 07:07 Resp 16 02/27/24 07:07 BP 146/79 H 02/27/24 07:07 Pulse Ox 95 02/27/24 07:07 O2 Del Method Room Air 02/27/24 07:07 BMI result Body Mass Index 33.3 Gen: in no acute distress HEENT: sclera anicteric, moist mucus membranes Neck: supple Lungs: clear to auscultation bilaterally Heart: regular rate and rhythm, no murmurs Abd: soft, RUQ minimally tender, Henry's negative, non-distended Ext: no edema Skin: warm/well-perfused Neuro: alert and oriented x3, no focal findings Psych: appropriate affect Objective Data Active Medications Acetaminophen (Acetaminophen 325 Mg Tablet) 650 mg PO Q6H PRN PRN Reason: Pain, Mild (Pain Scale 1-3) Albuterol/Ipratropium (Albuterol/Iprat 2.5/0.5mg 3 Ml Ampul.Neb) 3 ml INHALE RQ4H WHILE AWAKE PRN PRN Reason: Dyspnea Diphenhydramine HCl (Diphenhydramine Hcl 25 Mg Capsule) 25 mg PO BEDTIME [facility] Last Admin: 02/26/24 21:21 Dose: 25 mg Documented By: ASHTYN Escitalopram Oxalate (Escitalopram Oxalate 20 Mg Tablet) 20 mg PO DAILY [facility] Last Admin: 02/27/24 08:19 Dose: 20 mg Documented By: NICKY Gabapentin (Gabapentin 300 Mg Capsule) 300 mg PO TID [facility] Last Admin: 02/27/24 08:18 Dose: 300 mg Documented By: NICKY Hydromorphone HCl (Hydromorphone Hcl 1 Mg/Ml Syringe) 1 mg IVPUSH Q4H PRN; Protocol PRN Reason: Pain, Severe (Pain Scale 7-10) Last Admin: 02/27/24 08:32 Dose: 1 mg Documented By: NICKY Piperacillin Sod/Tazobactam (Sod 4.5 gm/ Sodium Chloride) 100 mls @ 200 mls/hr IV Q6H [facility] Last Infusion: 02/27/24 05:10 Dose: Infused Documented By: ASHTYN Lactated Ringer's (Lr) 1,000 mls @ 150 mls/hr IVCONT .Q6H40M [facility] Last Admin: 02/27/24 08:36 Dose: 150 mls/hr Documented By: NICKY Loratadine (Loratadine 10 Mg Tablet) 10 mg PO DAILY [facility] Last Admin: 02/27/24 08:19 Dose: 10 mg Documented By: NICKY Lorazepam (Lorazepam 1 Mg Tablet) 1 mg PO ONCE PRN PRN Reason: anxiety before HIDA scan Last Admin: 02/26/24 19:22 Dose: 1 mg Documented By: ASHTYN Melatonin (Melatonin 3 Mg Tablet) 6 mg PO BEDTIME PRN PRN Reason: Insomnia Mirtazapine (Mirtazapine 7.5 Mg Tablet) 7.5 mg PO BEDTIME [facility] Last Admin: 02/26/24 21:21 Dose: 7.5 mg Documented By: ASHTYN Ondansetron HCl (Ondansetron Hcl 4 Mg/2 Ml Vial) 4 mg IVPUSH Q8H PRN PRN Reason: Nausea and Vomiting Last Admin: 02/26/24 21:24 Dose: 4 mg Documented By: ASHTYN Oxycodone HCl (Oxycodone Hcl Er 10 Mg Tab.Er.12h) 10 mg PO Q12H [facility] Last Admin: 02/27/24 08:19 Dose: 10 mg Documented By: NICKY Sodium Chloride (0.9 % Sodium Chloride Flush 3 Ml Syringe) 3 ml IVFLUSH QSHIFT [facility] Last Admin: 02/27/24 07:04 Dose: 3 ml Documented By: NICKY Tizanidine HCl (Tizanidine Hcl 4 Mg Tablet) 4 mg PO Q8H [facility] Last Admin: 02/27/24 08:19 Dose: 4 mg Documented By: NICKY Vitamin D (Cholecalciferol (Vitamin D3) 25 Mcg Tablet) 50 mcg PO DAILY [facility] Last Admin: 02/27/24 08:19 Dose: 50 mcg Documented By: NICKY Labs 02/27/24 05:20 02/27/24 05:20 Labs: Laboratory Results - last 24 hr 06/11/24 05:20 MCV 88.8 MCH 30.8 MCHC 34.6 RDW 12.6 Plt Count 281 MPV 9.5 Absolute Nucleated RBC 0.000 Nucleated RBC % (auto) 0.0 Anion Gap 17 Estim Creat Clear Calc 45.1 Estimated GFR 35 Random Glucose 71 Calcium 9.4 Total Bilirubin 0.5 AST 22 ALT 12 Alkaline Phosphatase 44 Total Protein 6.7 Albumin 4.0 Microbiology Microbiology Results: Microbiology 02/25/24 Unknown Urine Culture - Final Urine clean catch - Urine rapp top Assessment and Plan (1) Biliary colic: Status: Acute Plan d2 58yo F with asthma not on home O2, mood disorder, HTN presenting with 3d of nausea/vomiting and RUQ pain, concerning for cholecystitis with positive Henry sign though no wall thickening or pericholecystic fluid; CBD dilated to 9mm on US but on MRCP completely normal cholelithiasis with biliary colic - doubt cholecystitis though HIDA pending; d/c Zosyn; advance diet to clears; will need outpt cholecystectomy JUDY - give IV fluids, recheck BMP in AM hypoK - repleted mood disorder - escitalopram, mirtazapine chronic pain - oxycodone, tizanidine, gabapentin VTE ppx - SCDs dispo - eventual home In my clinical judgment, the patient requires continued inpatient hospitalization for the following reasons: IV fluids for JUDY Total time managing care of this patient today: 35 minutes. Quality Stroke Does the patient have a stroke diagnosis?: No VTE Prior VTE?: No VTE Risk Level:: Medical - moderate - high VTE Device Contraindication: N/A - Device Ordered VTE Drug Contraindication: Treatment Not Indicated
[2024-02-27 15:10] VITALS: BP 131/71; PULSE 69; RESP 16; TEMP 36.6; O2SAT 92
[2024-02-27 19:12] VITALS: BP 123/60; PULSE 72; RESP 18; TEMP 36.3; O2SAT 93
[2024-02-27] MEDS: diphenhydrAMINE HCL 25 MG CAPSULE PO (21:00)
[2024-02-27] MEDS: Mirtazapine 7.5 MG TABLET PO (21:00)
[2024-02-27 23:48] VITALS: BP 141/87; PULSE 66; RESP 16
[2024-02-28] MEDS: Lactated Ringers 1,000 ML 150 ML IVCONT (01:05)
[2024-02-28 03:54] VITALS: BP 148/72; PULSE 72; RESP 18; TEMP 36.4; O2SAT 95
[2024-02-28] MEDS: HYDROmorphone HCl 1 MG/ML SYRINGE IVPUSH (04:14)
[2024-02-28 06:13] LABS: Anion Gap 10 (12-20); Blood Urea Nitrogen 8 mg/dL (9-16); Calcium 9.1 mg/dL (8.4-10.2); Carbon Dioxide 27 mmol/L (22-29); Chloride 100 mmol/L (96-108); Creatinine Clr Calc Pharmacy 68.3; Estimated Glomerular Filt Rate 56; Glucose Random 83 mg/dL (60-115); Sodium 134 mmol/L (135-145)
[2024-02-28 07:17] VITALS: BP 131/73; PULSE 60; RESP 18; TEMP 36.6; O2SAT 94
[2024-02-28] MEDS: Potassium Chloride ER 20 MEQ TAB.ER.PRT 40 MEQ PO (07:54)
[2024-02-28] MEDS: oxyCODONE HCl ER 10 MG TAB.ER.12H PO (07:54)
[2024-02-28] MEDS: Escitalopram Oxalate 20 MG TABLET PO (07:54)
[2024-02-28] MEDS: Gabapentin 300 MG CAPSULE PO (07:55)
[2024-02-28] MEDS: Cholecalciferol (Vitamin D3) 25 MCG TABLET 50 MCG PO (07:55)
[2024-02-28] MEDS: Loratadine 10 MG TABLET PO (07:55)
[2024-02-28] MEDS: TiZANidine HCL 4 MG TABLET PO (07:55)
--- NOTE | 2024-02-28 08:25 | PM.PNGS ---
Subjective Subjective Date of Service: 02/27/24 Interval history: Patient evaluated this morning. She states her right upper quadrant symptoms have markedly improved. Official reading of HIDA scan still pending. Patient is hungry and also does not want to proceed with surgical intervention for gallbladder despite a lengthy discussion regarding the risks, benefits and alternatives of conservative therapy and laparoscopic possible open cholecystectomy. Physical Exam Vital Signs: Vital Signs: Last Vital Signs Temp 97.9 F 02/28/24 07:17 Pulse 60 02/28/24 07:17 Resp 18 02/28/24 07:17 BP 131/73 02/28/24 07:17 Pulse Ox 94 02/28/24 07:17 O2 Del Method Room Air 02/28/24 07:17 BMI result Body Mass Index 33.3 GI: Other: Very corpulent abdomen. Mild right upper quadrant tenderness. No evidence of any guarding, rebound, rigidity. Objective Data Active Medications Acetaminophen (Acetaminophen 325 Mg Tablet) 650 mg PO Q6H PRN PRN Reason: Pain, Mild (Pain Scale 1-3) Albuterol/Ipratropium (Albuterol/Iprat 2.5/0.5mg 3 Ml Ampul.Neb) 3 ml INHALE RQ4H WHILE AWAKE PRN PRN Reason: Dyspnea Diphenhydramine HCl (Diphenhydramine Hcl 25 Mg Capsule) 25 mg PO BEDTIME [facility] Last Admin: 02/27/24 21:00 Dose: 25 mg Documented By: ASHTYN Escitalopram Oxalate (Escitalopram Oxalate 20 Mg Tablet) 20 mg PO DAILY [facility] Last Admin: 02/28/24 07:54 Dose: 20 mg Documented By: NICKY Gabapentin (Gabapentin 300 Mg Capsule) 300 mg PO TID [facility] Last Admin: 02/28/24 07:55 Dose: 300 mg Documented By: NICKY Hydromorphone HCl (Hydromorphone Hcl 1 Mg/Ml Syringe) 1 mg IVPUSH Q4H PRN; Protocol PRN Reason: Pain, Severe (Pain Scale 7-10) Last Admin: 02/28/24 04:14 Dose: 1 mg Documented By: SUYAPA Loratadine (Loratadine 10 Mg Tablet) 10 mg PO DAILY [facility] Last Admin: 02/28/24 07:55 Dose: 10 mg Documented By: NICKY Lorazepam (Lorazepam 1 Mg Tablet) 1 mg PO ONCE PRN PRN Reason: anxiety before HIDA scan Last Admin: 02/26/24 19:22 Dose: 1 mg Documented By: ASHTYN Melatonin (Melatonin 3 Mg Tablet) 6 mg PO BEDTIME PRN PRN Reason: Insomnia Mirtazapine (Mirtazapine 7.5 Mg Tablet) 7.5 mg PO BEDTIME [facility] Last Admin: 02/27/24 21:00 Dose: 7.5 mg Documented By: ASHTYN Ondansetron HCl (Ondansetron Hcl 4 Mg/2 Ml Vial) 4 mg IVPUSH Q8H PRN PRN Reason: Nausea and Vomiting Last Admin: 02/26/24 21:24 Dose: 4 mg Documented By: ASHTYN Oxycodone HCl (Oxycodone Hcl Er 10 Mg Tab.Er.12h) 10 mg PO Q12H [facility] Last Admin: 02/28/24 07:54 Dose: 10 mg Documented By: NICKY Sodium Chloride (0.9 % Sodium Chloride Flush 3 Ml Syringe) 3 ml IVFLUSH QSHIFT [facility] Last Admin: 02/28/24 07:57 Dose: Not Given Documented By: NICKY Non-Admin Reason: IV Running Tizanidine HCl (Tizanidine Hcl 4 Mg Tablet) 4 mg PO Q8H [facility] Last Admin: 02/28/24 07:55 Dose: 4 mg Documented By: NICKY Vitamin D (Cholecalciferol (Vitamin D3) 25 Mcg Tablet) 50 mcg PO DAILY [facility] Last Admin: 02/28/24 07:55 Dose: 50 mcg Documented By: NICKY Labs 02/27/24 05:20 02/28/24 05:27 Labs: Laboratory Results - last 24 hr 02/28/24 05:27 Hold Purple Top SEE NOTE Anion Gap 10 L Estim Creat Clear Calc 68.3 Estimated GFR 56 Random Glucose 83 Calcium 9.1 Microbiology Microbiology Results: Microbiology 02/25/24 Unknown Urine Culture - Final Urine clean catch - Urine rapp top Procedures Date of Service Date of Service: 02/28/24 Progress Note: A&P Assessment and plan (1) Biliary colic: Status: Acute Plan As noted above, patient does not want any surgical intervention at this time. Wishes to be treated conservatively. Diet will be advanced as tolerated. To follow. Time Spent With Patient Time: Total time managing care of this patient today ____ minutes. Quality Stroke Does the patient have a stroke diagnosis?: No VTE Prior VTE?: No VTE Risk Level:: Medical - moderate - high VTE Device Contraindication: N/A - Device Ordered VTE Drug Contraindication: Treatment Not Indicated
--- NOTE | 2024-02-28 08:26 | PM.PNGS ---
Subjective Subjective Date of Service: 02/28/24 Interval history: Patient's abdominal symptoms are minimum at present. She tolerated liquid diet yesterday. Still hungry. Does not wished to have any surgical intervention. Official read of HIDA scan still pending. Physical Exam Vital Signs: Vital Signs: Last Vital Signs Temp 97.9 F 02/28/24 07:17 Pulse 60 02/28/24 07:17 Resp 18 02/28/24 07:17 BP 131/73 02/28/24 07:17 Pulse Ox 94 02/28/24 07:17 O2 Del Method Room Air 02/28/24 07:17 BMI result Body Mass Index 33.3 GI: Other: Exam is essentially status quo from yesterday. Very corpulent abdomen. Very mild right upper quadrant tenderness but no evidence of any guarding, rebound, rigidity. Objective Data Active Medications Acetaminophen (Acetaminophen 325 Mg Tablet) 650 mg PO Q6H PRN PRN Reason: Pain, Mild (Pain Scale 1-3) Albuterol/Ipratropium (Albuterol/Iprat 2.5/0.5mg 3 Ml Ampul.Neb) 3 ml INHALE RQ4H WHILE AWAKE PRN PRN Reason: Dyspnea Diphenhydramine HCl (Diphenhydramine Hcl 25 Mg Capsule) 25 mg PO BEDTIME [facility] Last Admin: 02/27/24 21:00 Dose: 25 mg Documented By: ASHTYN Escitalopram Oxalate (Escitalopram Oxalate 20 Mg Tablet) 20 mg PO DAILY [facility] Last Admin: 02/28/24 07:54 Dose: 20 mg Documented By: NICKY Gabapentin (Gabapentin 300 Mg Capsule) 300 mg PO TID [facility] Last Admin: 02/28/24 07:55 Dose: 300 mg Documented By: NICKY Hydromorphone HCl (Hydromorphone Hcl 1 Mg/Ml Syringe) 1 mg IVPUSH Q4H PRN; Protocol PRN Reason: Pain, Severe (Pain Scale 7-10) Last Admin: 02/28/24 04:14 Dose: 1 mg Documented By: SUYAPA Loratadine (Loratadine 10 Mg Tablet) 10 mg PO DAILY [facility] Last Admin: 02/28/24 07:55 Dose: 10 mg Documented By: NICKY Lorazepam (Lorazepam 1 Mg Tablet) 1 mg PO ONCE PRN PRN Reason: anxiety before HIDA scan Last Admin: 02/26/24 19:22 Dose: 1 mg Documented By: ASHTYN Melatonin (Melatonin 3 Mg Tablet) 6 mg PO BEDTIME PRN PRN Reason: Insomnia Mirtazapine (Mirtazapine 7.5 Mg Tablet) 7.5 mg PO BEDTIME [facility] Last Admin: 02/27/24 21:00 Dose: 7.5 mg Documented By: ASHTYN Ondansetron HCl (Ondansetron Hcl 4 Mg/2 Ml Vial) 4 mg IVPUSH Q8H PRN PRN Reason: Nausea and Vomiting Last Admin: 02/26/24 21:24 Dose: 4 mg Documented By: ASHTYN Oxycodone HCl (Oxycodone Hcl Er 10 Mg Tab.Er.12h) 10 mg PO Q12H [facility] Last Admin: 02/28/24 07:54 Dose: 10 mg Documented By: NICKY Sodium Chloride (0.9 % Sodium Chloride Flush 3 Ml Syringe) 3 ml IVFLUSH QSHIFT [facility] Last Admin: 02/28/24 07:57 Dose: Not Given Documented By: NICKY Non-Admin Reason: IV Running Tizanidine HCl (Tizanidine Hcl 4 Mg Tablet) 4 mg PO Q8H [facility] Last Admin: 02/28/24 07:55 Dose: 4 mg Documented By: NICKY Vitamin D (Cholecalciferol (Vitamin D3) 25 Mcg Tablet) 50 mcg PO DAILY [facility] Last Admin: 02/28/24 07:55 Dose: 50 mcg Documented By: NICKY Labs 02/27/24 05:20 02/28/24 05:27 Labs: Laboratory Results - last 24 hr 02/28/24 05:27 Hold Purple Top SEE NOTE Anion Gap 10 L Estim Creat Clear Calc 68.3 Estimated GFR 56 Random Glucose 83 Calcium 9.1 Microbiology Microbiology Results: Microbiology 02/25/24 Unknown Urine Culture - Final Urine clean catch - Urine rapp top Procedures Date of Service Date of Service: 02/28/24 Progress Note: A&P Assessment and plan (1) Biliary colic: Status: Acute Plan Diet as tolerated. For outpatient follow-up for consideration of elective cholecystectomy. Time Spent With Patient Time: Total time managing care of this patient today ____ minutes. Quality Stroke Does the patient have a stroke diagnosis?: No VTE Prior VTE?: No VTE Risk Level:: Medical - moderate - high VTE Device Contraindication: N/A - Device Ordered VTE Drug Contraindication: Treatment Not Indicated
--- NOTE | 2024-02-28 10:26 | MHC.CM.PN ---
Addendum entered by Stephanie Denise RN 02/28/24 13:50: Patient medically cleared for dc home self care. Drain was removed. Patient's to provide transport home ~2pm. RN at bedside and aware. Original Note: EMR reviewed. Per MD rounds patient not medically cleared for dc at this time. Advancing diet. CM will continue to follow.
[2024-02-28 12:29] LABS: Anion Gap 12 (12-20); Blood Urea Nitrogen 7 mg/dL (9-16); Calcium 9.5 mg/dL (8.4-10.2); Carbon Dioxide 29 mmol/L (22-29); Chloride 99 mmol/L (96-108); Creatinine Clr Calc Pharmacy 71.9; Estimated Glomerular Filt Rate 60; Glucose Random 90 mg/dL (60-115); Potassium 3.3 mmol/L (3.3-5.1); Sodium 137 mmol/L (135-145)
--- NOTE | 2024-02-28 13:38 | PM.DS ---
DS: Providers Provider Date of Service: 02/28/24 Date of admission: 02/25/24 23:09 Date of discharge: 02/28/24 Primary care physician: ANGELICA Carr Consults: 02/25/24 23:15 Consult to General Surgery Routine Consulting Provider: [facility] [place] General Surgeons Reason for consultation: acute cholecystitis 02/26/24 08:22 Consult to Gastroenterology Routine Consulting Provider: [facility] Reason for consultation: dilated CBD DS: Diagnosis Discharge Diagnosis (1) Biliary colic: Status: Acute (2) Cholelithiasis: Status: Acute (3) Acute kidney injury: Status: Acute (4) Hypokalemia: Status: Acute DS: Summary Hospital Course Hospital Course: From the history and physical by the admitting hospitalist, Baljinder Betancourt, 02/25/24: This is a 58-year-old female with pertinent history of asthma not on home oxygen, mood disorder, hypertension who presents to the emergency department for evaluation of abdominal pain. Patient states she has been having diarrhea and nausea that started 2 weeks ago. The diarrhea is now resolved. Patient started having right upper quadrant pain 3 days prior to presentation. It is intermittent and worse with p.o. intake. It is nonradiating and without any relieving factors. Never has had similar pain in the past. Unable to tolerate p.o. intake. Patient states the pain is progressively worse and was severe on the day of presentation and hence she decided to come to the ER. No fever, chills, chest discomfort, palpitations, shortness of breath, changes in urinary or bowel habits. The emergency department, sonographic Henry signs positive and cholelithiasis seen with dilated common bile duct. 58yo F with asthma not on home O2, mood disorder, and HTN presenting with 3d of nausea/vomiting and RUQ pain. Initially concerning for cholecystitis with positive Henry sign, though it should be noted that there was no wall thickening or pericholecystic fluid. There was also concern for choledocholithiasis with CBD dilated to 9mm on US but on MRCP, the CBD was completely normal and throughout her hospitalization, LFTs were also completely normal. Her diet was advanced to clear liquids, then full liquids, then lowfat solids. She did well with resolution of the pain, nausea, and vomiting and with good diet tolerance. A HIDA scan demonstrated nonvisualization of the gallbladder but in the face of clinical improvement, lack of fever/leukocytosis, and completely normal CRP, cholecystitis was deemed unlikely. She did have consultation with Gastroenterology and General Surgery and declined inpatient cholecystectomy; she will follow up with the General Surgery clinic for outpatient cholecystectomy. She did have mild JUDY that resolved with IV fluid hydration, as well as mild hypokalemia that was repleted orally. Time Attestation Discharge Coordination Time (in mins): 35 Quality: Safe Use of Opioids Does Pt have an Active Cancer Diagnosis on the Problem List?: No Quality: Stroke Does the patient have a stroke diagnosis?: No Physical Exam Vital Signs: Vital Signs: Last Vital Signs Temp 97.9 F 02/28/24 07:17 Pulse 60 02/28/24 07:17 Resp 18 02/28/24 07:17 BP 131/73 02/28/24 07:17 Pulse Ox 94 02/28/24 07:17 O2 Del Method Room Air 02/28/24 07:17 BMI result Body Mass Index 33.3 Gen: in no acute distress HEENT: sclera anicteric, moist mucus membranes Neck: supple Lungs: clear to auscultation bilaterally Heart: regular rate and rhythm, no murmurs Abd: soft, non-tender, non-distended Ext: no edema Skin: warm/well-perfused Neuro: alert and oriented x3, no focal findings Psych: appropriate affect DS: Data Data Completed and Pending Completed studies during hospitalization [Text1]: Laboratory Results WBC 7.3 X10*3/uL (4.8-10.8) 02/27/24 05:20 RBC 4.00 X10*6/uL (4.20-5.50) L 02/27/24 05:20 Hgb 12.3 g/dl (12.0-16.0) 02/27/24 05:20 Hct 35.5 % (37.0-47.0) L 02/27/24 05:20 MCV 88.8 fL (80.0-98.0) 02/27/24 05:20 MCH 30.8 pg (27.0-33.0) 02/27/24 05:20 MCHC 34.6 g/dl (31.0-35.0) 02/27/24 05:20 RDW 12.6 % (11.0-16.0) 02/27/24 05:20 Plt Count 281 X10*3/uL (160-400) 02/27/24 05:20 MPV 9.5 fL (9.4-12.3) 02/27/24 05:20 Immature Gran % (Auto) 0.6 % (0.0-0.4) H 02/26/24 05:33 Neut % (Auto) 51.9 % (45-73) 02/26/24 05:33 Lymph % (Auto) 36.4 % (20-40) 02/26/24 05:33 [place] % (Auto) 8.3 % (2-11) 02/26/24 05:33 Eos % (Auto) 2.1 % (0-4) 02/26/24 05:33 Baso % (Auto) 0.7 % (0-2) 02/26/24 05:33 Lymph # (Auto) 2.9 X10*3/uL (1.2-4.9) 02/26/24 05:33 [place] # (Auto) 0.7 X10*3/uL (0.1-1.2) 02/26/24 05:33 Eos # (Auto) 0.2 X10*3/uL (0.0-0.4) 02/26/24 05:33 Baso # (Auto) 0.1 X10*3/uL (0.0-0.2) 02/26/24 05:33 Abs Immat Gran (auto) 0.05 X10*3/uL (0.00-0.03) H 02/26/24 05:33 Absolute Neuts (auto) 4.2 x10*3/uL (2.0-8.3) 02/26/24 05:33 Absolute Nucleated RBC 0.000 X10*3/uL (0.0-0.012) 02/27/24 05:20 Nucleated RBC % (auto) 0.0 /100WBC (0.0-0.2) 02/27/24 05:20 Hold Purple Top SEE NOTE 02/28/24 05:27 Sodium 137 mmol/L (135-145) 02/28/24 12:07 Potassium 3.3 mmol/L (3.3-5.1) 02/28/24 12:07 Chloride 99 mmol/L (96-108) 02/28/24 12:07 Carbon Dioxide 29 mmol/L (22-29) 02/28/24 12:07 Anion Gap 12 (12-20) 02/28/24 12:07 BUN 7 mg/dL (9-16) L 02/28/24 12:07 Creatinine 0.96 mg/dL (0.5-1.4) 02/28/24 12:07 Estim Creat Clear Calc 71.9 02/28/24 12:07 Estimated GFR 60 02/28/24 12:07 Random Glucose 90 mg/dL (60-115) 02/28/24 12:07 Calcium 9.5 mg/dL (8.4-10.2) 02/28/24 12:07 Total Bilirubin 0.5 mg/dL (0.0-1.0) 02/27/24 05:20 Direct Bilirubin 0.2 mg/dL (0.0-0.5) 02/26/24 05:33 AST 22 U/L (5-31) 02/27/24 05:20 ALT 12 U/L (0-31) 02/27/24 05:20 Alkaline Phosphatase 44 U/L (39-117) 02/27/24 05:20 C-Reactive Protein < 0.10 mg/dL (< or = 0.50) 02/26/24 05:33 Total Protein 6.7 g/dL (6.5-8.0) 02/27/24 05:20 Albumin 4.0 g/dL (3.5-5.0) 02/27/24 05:20 Lipase 24 U/L (8-78) 02/25/24 15:39 Beta HCG, Quant 4 mIU/mL 02/25/24 15:39 Urine Color Yellow 02/25/24 21:00 Urine Appearance Clear 02/25/24 21:00 Urine pH 8.5 (5.0-9.0) 02/25/24 21:00 Ur Specific [place] 1.010 (1.005-1.025) 02/25/24 21:00 Urine Protein Negative mg/dL (Neg-Trace) 02/25/24 21:00 Urine Glucose (UA) Negative mg/dL (Negative) 02/25/24 21:00 Urine Ketones Trace mg/dL (Negative) 02/25/24 21:00 Urine Blood Negative (Negative) 02/25/24 21:00 Urine Nitrite Negative (Negative) 02/25/24 21:00 Ur Leukocyte Esterase Moderate (2+) (Negative) H 02/25/24 21:00 Urine RBC 0-2 /HPF (0-2) 02/25/24 21:00 Urine WBC 11-20 /HPF (0-5) H 02/25/24 21:00 Ur Squamous Epith Cells 3-5 /HPF (0-2) 02/25/24 21:00 Urine Bacteria Trace (None Seen) 02/25/24 21:00 Hyaline Casts 0-2 /LPF (0-2) 02/25/24 21:00 Impressions Abdomen Ultrasound 02/25/24 15:23 IMPRESSION: 1. Cholelithiasis without secondary signs of acute cholecystitis. Of note sonographic Henry's sign is positive. If there is persistent clinical concern for acute cholecystitis, further evaluation with HIDA scan can be considered. 2. Mildly dilated common bile duct measuring 0.9 cm without obstructing stone in the visualized portions.If there is clinical concern for choledocholithiasis, further evaluation with MRCP can be considered. 3. Increased liver echogenicity which can be seen with hepatic steatosis. Cholangiopancreatography MRI 02/26/24 09:08 IMPRESSION: 1. Cholelithiasis without evidence of acute cholecystitis. 2. CBD not occluded by stones or sludge. 3. 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 Hepatobiliary Scan Nuclear [facility] 02/26/24 19:55 IMPRESSION: 1. Nonvisualized gallbladder on the initial and subsequent delayed 4 hours post injection. In the appropriate clinical setting, the finding would be consistent with acute cholecystitis. Possible differential diagnostic consideration would also include physiologically overdistended versus contracted gallbladder and unlikely to be related to chronic cholecystitis or biliary dyskinesia. 2. Patent common bile duct. 3. Liver function appears normal. Discharge Plan Discharge Anticipated Discharge Date/Time: 02/28/24 13:35 Patient Disposition: Home, Self-Care Discharge Diagnosis: biliary colic Referrals: Christiano Patel MD [Physician] - 1 Week Marianela Jeff FNP [Primary Care Provider] - 1 Week Discharge Medications: Continued nifedipine 30 mg tablet extended release 24hr 30 mg PO QAM chlorthalidone 25 mg tablet 25 mg PO QAM mirtazapine 7.5 mg tablet 7.5 mg PO BEDTIME diphenhydramine HCl 25 mg Tablet 25 mg PO BEDTIME gabapentin 300 mg capsule 300 mg PO TID olmesartan 40 mg tablet 40 mg PO QAM cholecalciferol (vitamin D3) [Vitamin D3] 50 mcg (2,000 unit) capsule 50 mcg PO DAILY melatonin 10 mg Tablet 10 - 20 mg PO BEDTIME oxycodone [OxyContin] 15 mg tablet,oral only,ext.rel.12 hr 15 mg PO Q12H tizanidine 4 mg tablet 4 mg PO Q8H budesonide-formoterol [Symbicort] 80-4.5 mcg/actuation HFA aerosol inhaler 2 puff inhalation Q4-6H PRN (Reason: dyspnea) citalopram 40 mg tablet 40 mg PO DAILY naproxen 500 mg tablet 500 mg PO BID loratadine 10 mg tablet 10 mg PO DAILY furosemide 40 mg tablet 40 mg PO DAILY Discharge Orders: Discharge Order (Routine); Ordered 02/28/24 Ordered By: Jodie Sinha Diet: Low fat, low cholesterol Activity on Discharge: As tolerated Stand Alone Forms: Patient Portal Discharge page Print Language: Sammarinese Care Plan Goals: prevention of complications of gallstones Health Concerns: biliary colic Plan of Treatment: low-fat diet take acetaminophen [Tylenol] for pain outpatient follow up with [facility] [place] General Surgery to plan for outpatient elective cholecystectomy Please follow up with your primary care doctor within 1 week. Return to the hospital if you experience recurrent or worsening symptoms. Assessment: See Discharge Summary.
== END 2024-02-28 14:23 | disposition home or self-care (01) | DRG 446 ==
LOC: HO.ED 23:03 → HO.EDOVER 23:16 → HO.S3 02-26 13:42
PROVIDERS: Physician Assistant; Admitting Provider Student in an Organized Health Care Education/Training Program; Emergency Provider Emergency Medicine Emergency Medical Services; PCP Registered Nurse; Visit Provider Family Medicine
DX: K80.70 Calculus of gallbladder and bile duct without cholecystitis without obstruction (principal); F17.210 Nicotine dependence, cigarettes, uncomplicated; M25.551 Pain in right hip; G89.29 Other chronic pain; J45.909 Unspecified asthma, uncomplicated; E87.6 Hypokalemia; F39 Unspecified mood [affective] disorder; I10 Essential (primary) hypertension; Z71.6 Tobacco abuse counseling; Z79.899 Other long term (current) drug therapy
CPT/HCPCS: 36415; 74181; 76705; 78226; 80048; 80053; 80076; 81001; 83690; 84702; 85025; 85027; 86140; 87086; 99285; A9537; J1170; J2405; J2543; J3480; J7120

== ENCOUNTER → 2024-02-25 23:09 | Outpatient (BNV) | payer MEDICARE, SELFPAY | PROVIDERS: Admitting Provider Student in an Organized Health Care Education/Training Program; Emergency Provider Emergency Medicine Emergency Medical Services; PCP Registered Nurse; Visit Provider Surgery | DX: K80.50 Calculus of bile duct without cholangitis or cholecystitis without obstruction (principal) | CPT/HCPCS: 99222; 99232 ==

== ENCOUNTER → 2024-02-25 23:09 | Outpatient (BNV) | payer MEDICARE, SELFPAY | PROVIDERS: Admitting Provider Student in an Organized Health Care Education/Training Program; Emergency Provider Emergency Medicine Emergency Medical Services; PCP Registered Nurse; Visit Provider Student in an Organized Health Care Education/Training Program | DX: K80.50 Calculus of bile duct without cholangitis or cholecystitis without obstruction (principal); K80.20 Calculus of gallbladder without cholecystitis without obstruction; N17.9 Acute kidney failure, unspecified; E87.6 Hypokalemia | CPT/HCPCS: 99223; 99232; 99239; 99499 ==

== ENCOUNTER 2025-02-24 10:29 | Outpatient (REF) | payer MEDICARE, SELFPAY ==
--- OUTSIDE RECORDS SUMMARY | 2025-02-24 11:46 | XMS_ITS | Clinical Summary ---
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 both the craniocaudal and mediolateral oblique views along with computer-aided detection (CAD). Synthesized 2D images are generated from the tomosynthesis. FINDINGS: The breasts are almost entirely fatty (ACR BI-RADS breast composition Category a). There are no significant masses, abnormal calcifications, or other abnormalities. MM/MM tomosynthesis screening BI IMPRESSION: No mammographic evidence of malignancy. ASSESSMENT: BI-RADS BI-RADS 1 - Negative RECOMMENDATION: Routine annual mammography screening. 1 year F/U This examination should not preclude the clinical evaluation of a suspicious palpable abnormality. This patient's information was entered into a reminder system with a target due date for their next mammogram. Dictated By: Sarahi Loyola MD Signed By: <Electronically signed by Sarahi Loyola MD in OV> 07/18/23 0931 DD/ 1255 TD/TT: Mass Spectrometry Specialist: [facility] External Provider IMG BI PROCEDURES Final Result * (ABNORMAL) Lipid Panel, Standard (02/03/2023 3:54 PM EDT) Cholesterol, Total 181 <200 mg/dL [facility] [place] [email or web address] HDL Cholesterol 66 > OR = 50 mg/dL [facility] [place] [email or web address] Triglycerides 53 <150 mg/dL [facility] [place] [email or web address] LDL Cholesterol 101(H) mg/dL (calc) [facility] [place] [email or web address] Comment: Reference range: <100 Desirable range <100 mg/dL for primary prevention; ?? <70 mg/dL for patients with CHD or diabetic patients with > or = 2 CHD risk factors. LDL-C is now calculated using the Annette calculation, which is a validated novel method providing better accuracy than the Friedewald equation in the estimation of LDL-C. Zion GOODE et al. BRUNA. 2013;310(19): 5408-9748 (http://education.[employer]/faq/XKR228) Chol/HDLC Ratio 2.7 <5.0 (calc) [facility] [place] [email or web address] Non-HDL Cholesterol 115 <130 mg/dL (calc) [facility] [place] [email or web address] Comment: For patients with diabetes plus 1 major ASCVD risk factor, treating to a non-HDL-C goal of <100 mg/dL (LDL-C of <70 mg/dL) is considered a therapeutic option. Blood Venous blood specimen / Unknown 02/03/2023 3:54 PM EDT 02/03/2023 3:54 PM EDT Narrative [facility] - 02/04/2023 7:25 AM EDT FASTING:NO FASTING: NO [facility] PACKAGING MACHINE SUPPLIES DISTRIBUTOR LAB BLOOD ORDERABLES Final Re sult [facility] [address], [place] [address] [facility] [place] [email or web address] [address] [place] [address] * HPV mRNA E6/E7 (02/07/2017 11:00 AM EDT) HPV mRNA E6/E7 Not Detected NOT DETECTED [facility] Comment: This test was performed using the APTIMA(R) HPV Assay ([employer] This assay detects E6/E7 viral messenger RNA (mRNA) from 14 high-risk HPV types (16,18,31,33,35,39,45,51, 52,56,58,59,66,68). For additional information please refer to: http://education.Unmetric/faq/WBG657w0 (This link is being provided for informational/ educational purposes only.) Test Performed by [employer], [facility], [address] [place] [address] Jone oLza M.D., Ph.D., Director of Laboratories , [facility] [id number] Please note: ??Effective 05/30/2016, HPV testing will be performed using [employer]'s APTIMA test which targets mRNA. Detecting mRNA instead of DNA, as in older methods, offers significant improvements in specificity. 02/07/2017 11:0 0 AM EDT us Ela Munoz NP HISTORICAL/NON ORDERABLE LABS Fi nal Result [facility] Anywhere [address] from Last 3 Months or Most Recently Relevant to Health Maintenance Insurance HSN PARTIAL [facility] STANDARD DENTAL - HSN PARTIAL (MEDICAID) DENTAL-[facility] MEDICAID STAND ADULT Care Teams Ladies Locker Room Attendant Relationship Specialty Start Date End Date Marianela Jeff FNP [address], [place] [phone] PCP - General Family Medicine 07/02/24
[2025-02-24 11:47] LABS: Alanine Aminotransferase 7 U/L (0-31); Albumin Level 4.3 g/dL (3.5-5.0); Alkaline Phosphatase 52 U/L (39-117); Anion Gap 10 (12-20); Aspartate Amino Transferase 17 U/L (5-31); Bilirubin Total 0.3 mg/dL (0.0-1.0); Blood Urea Nitrogen 14 mg/dL (9-16); Calcium 9.3 mg/dL (8.4-10.2); Carbon Dioxide 30 mmol/L (22-29); Chloride 98 mmol/L (96-108); Estimated Glomerular Filt Rate 47; Glucose Random 81 mg/dL (60-115); Potassium 3.9 mmol/L (3.3-5.1); Sodium 134 mmol/L (135-145); Total Protein 6.7 g/dL (6.5-8.0)
== END 2025-02-24 10:30 | disposition home or self-care (01) ==
LOC: HO.HHCL 10:29
PROVIDERS: Visit Provider Registered Nurse
DX: I10 Essential (primary) hypertension (principal)
CPT/HCPCS: 36415; 80053

== ENCOUNTER 2025-03-24 14:29 | Outpatient (REF) | payer MEDICARE, SELFPAY ==
--- OUTSIDE RECORDS SUMMARY | 2025-03-24 13:00 | XMS_ITS | Encounter Summary ---
Author Organization [employer] Address [address] [facility] 7[address] [place] [address] Care Team Providers Care Permit Technician Name Role Phone Marianela Jeff [facility] Primary Care Provider [phone] Reason for Visit * Reason Comments Blood Pressure Check Encounter Details Date Type Department Care Team ([facility] st Contact Info) Description 03/24/2025 1:00 PM EDT Clinical Support [facility] MEDICINE [address] [place] [address] Aisha Burris, RN [address] [place] [address] Arrived Social History Tobacco Use Types Packs/Day Years Used Date Smoking Tobacco: Every Day Cigarettes Passive Smoke Exposure: Current Smokeless Tobacco: Never Alcohol Use Standard Drinks/Week Comments Never 0 [...] Orientation Straight 07/18/2022 10 :15 AM EDT documented as of this encounter Plan of Treatment Upcoming Encounters Date Type Department Care Team (Late st Contact Info) Description 04/28/2025 11:30 AM EDT Clinical Support [facility] MEDICINE [address] [place] [phone] Carley Sesay RN documented as of this encounter Visit Diagnoses Not on filedocumented in this encounter Additional Health Concerns Assessment Noted Time PHQ-9 Depression Total Score: 11 025 9:52 AM EDT documented as of this encounter Care Teams Permit Technician Relationship Specialty Start Date End Date Marianela Jeff FNP [address] [place] [address] PCP - General Family Medicine 07/02/24 documented as of this encounter
[2025-03-24 17:28] LABS: Anion Gap 13 (12-20); Blood Urea Nitrogen 14 mg/dL (9-16); Calcium 9.9 mg/dL (8.4-10.2); Carbon Dioxide 24 mmol/L (22-29); Chloride 104 mmol/L (96-108); Estimated Glomerular Filt Rate > 60; Potassium 3.4 mmol/L (3.3-5.1); Sodium 138 mmol/L (135-145)
== END 2025-03-24 14:30 | disposition home or self-care (01) ==
LOC: HO.HHCL 14:29
PROVIDERS: PCP Registered Nurse; Visit Provider Registered Nurse
DX: Z00.00 Encounter for general adult medical examination without abnormal findings (principal)
CPT/HCPCS: 36415; 80048

== ENCOUNTER 2025-07-18 14:50 | Emergency (ER) | payer MEDICARE, SELFPAY ==
--- OUTSIDE RECORDS SUMMARY | 2025-07-18 11:15 | XMS_ITS | Encounter Summary ---
Author Organization [employer] Address [address] [facility] [address] [place] [address] Care Team Providers Care Nuclear Power Reactor Operator Name Role Phone [place] [facility] Primary Care Provider [phone] Reason for Visit * Reason Comments Follow-up Encounter Details Date Type Department Care Team ([facility] Contact Info) Description 07/18/2025 11:15 AM EDT Office Visit [facility] MEDICINE [address] [place], [place] [phone] [facility] [address] [place] [address] Essential hypertension (Primary Dx) Social History Tobacco Use Types Packs/Day Years [...] AM EDT documented as of this encounter Last Filed Vital Signs Vital Sign Reading Time Taken Comments Blood Pressure 180/100 07/18/2025 11:22 AM EDT Pulse 80 07/18/2025 11:22 AM EDT Temperature 36.9 C (98.5 F) 07/18/2025 11:22 AM EDT Respiratory Rate 20 07/18/2025 11:22 AM EDT Oxygen Saturation - - Inhaled Oxygen Concentration - - Weight 106 kg (233 lb 3.2 oz) 07/18/2025 11:22 A M EDT Height 165.1 cm (5' 5 ) 07/18/2025 11:22 AM EDT Body Mass Index 38.81 07/18/2025 11:22 AM EDT documented in this encounter Plan of Treatment Upcoming Encounters Date Type Department Care Team (Late st Contact Info) Description 08/18/2025 11:30 AM EST Clinical Support [facility] MEDICINE [address] [place] [phone] Carley Sesay, JAYLENE documented as of this encounter Visit Diagnoses Diagnosis Essential hypertension- Primary Unspecified essential hypertension documented in this encounter Additional Health Concerns Assessment Noted Time PHQ-9 Depression Total Score: 11 025 9:52 AM EDT documented as of this encounter Care Teams Nuclear Power Reactor Operator Relationship Specialty Start Date End Date [place] ANGELICA Bera [address] [place] [address] PCP - General Family Medicine 07/02/24 documented as of this encounter
[2025-07-18 14:53] VITALS: BP 223/105; PULSE 70; RESP 18; TEMP 36.1; O2SAT 95; BMI 33.7
--- NOTE | 2025-07-18 14:53 | ED.GENADULT ---
HPI - General Adult General Chief complaint: General Medical Stated complaint: High bp, abnormal ekg per dr Time Seen by Provider: 07/18/25 17:03 Source: patient, RN notes reviewed and old records reviewed Mode of arrival: ambulatory Limitations: no limitations History of Present Illness ED Provider: Becca Hager PA-C HPI narrative: Patient comes to the emergency department today for evaluation of outpatient abnormal EKG with elevated blood pressure. Past medical history significant for LINNEA, morbid obesity, cholelithiasis, hypertension, and anxiety. Patient was at her primary care's office today in regards to getting myself services established for moving in with her brother for VNA services. While there that she was noted to be hypertensive despite being asymptomatic they did an EKG and had none prior for comparison so sent her to the ED for workup. The EKG was not provided. Not sure what the 'abnormal' was just that is was nondiagnostic. Patient states at no point did she experience any chest pain or shortness of breath she is without any headaches or dizziness she has no back pain and no changes in urinary output no visual changes. She does admit to sometimes forgetting to take her nighttime nifedipine medication as well as her daytime blood pressure medication on a regular basis. She states last night she did not take it for which she suspects is what elevated her blood pressure which then made her feel anxious. She continues to endorse being asymptomatic at this time. Related Data Home Medications ?Medication ?Instructions ?Recorded ?Confirmed budesonide-formoterol HFA 80 2 puff inhalation Q4-6H PRN dyspnea 11/17/22 02/26/24 mcg-4.5 mcg/actuation aerosol inhaler (Symbicort) citalopram 40 mg tablet 40 mg PO DAILY 11/17/22 02/26/24 furosemide 40 mg tablet 40 mg PO DAILY 11/17/22 02/26/24 loratadine 10 mg tablet 10 mg PO DAILY Allergy Symptoms 11/17/22 02/26/24 naproxen 500 mg tablet 500 mg PO BID 11/17/22 02/26/24 tizanidine 4 mg tablet 4 mg PO Q8H Muscle Spasm 11/17/22 02/26/24 chlorthalidone 25 mg tablet 25 mg PO QAM 02/26/24 02/26/24 cholecalciferol (vitamin D3) 50 50 mcg PO DAILY 02/26/24 02/26/24 mcg (2,000 unit) capsule (Vitamin D3) diphenhydramine HCl 25 mg tablet 25 mg PO BEDTIME 02/26/24 02/26/24 gabapentin 300 mg capsule 300 mg PO TID 02/26/24 02/26/24 melatonin 10 mg tablet 10 - 20 mg PO BEDTIME 02/26/24 02/26/24 mirtazapine 7.5 mg tablet 7.5 mg PO BEDTIME 02/26/24 02/26/24 nifedipine 30 mg tablet,extended 30 mg PO QAM 02/26/24 02/26/24 release 24 hr olmesartan 40 mg tablet 40 mg PO QAM 02/26/24 02/26/24 oxycodone 15 mg tablet,crush 15 mg PO Q12H 02/26/24 02/26/24 resistant,extended release 12 hr (OxyContin) Allergies Allergy/AdvReac Type Severity Reaction Status Date / Time morphine (MORPHINE) Allergy Unknown PALPITATION Verified 07/18/25 14:55 S Review of Systems Review of Systems: Yes all other systems are reviewed and are negative [facility] Past Medical History Attestation statement: The following information was validated with the patient. Source: old records reviewed and nursing notes reviewed Medical History Hypertension LINNEA (obstructive sleep apnea) Asthma Nicotine dependence, cigarettes, uncomplicated Osteoarthritis of right hip Surgical History History of wisdom tooth extraction Social History Social History Household Members: Spouse Housing: House Do you presently have visiting nurse or other home services: No Alcohol intake: current Alcohol intake frequency: holidays/special occasions only Patient Tobacco Use Status: Current everyday Tobacco user Tobacco use type: Cigarette Cigarette Packs Per Day: 1 Cigarettes Per Day: 20.0 Smoked in Last 30 Days: Yes e-Cigarette/Vaping Use: Currently Using Use of substances other than those prescribed or required for medical reasons: No Substance Use Type: Other Advance Directives: No Advance Directives Information Provided: No Do you have a plan to hurt others: No Plan Patient : No service: No Current occupational status: disabled Physical Exam ED Exam Exam: General: Appears in no acute distress, appears well nourished body habitus is obese, appears stated age. No septic or ill-appearing. Vitals reviewed normal, PMH/Social and Surgical hx reviewed including allergies and current medications. - reviewed for prior visits here ]. Head: Normocephalic, no abnormal lesions noted. Eyes: EOMI. No sclera icterus, PERRLA, EOMI ENMT: moist oral mucosa, no edematous nasal turbinates, erythema, or purulent d/c noted. No erythema, normal appearing and intact tympanic membrane. Hearing intact. No mastoid tenderness b/l. Normal posterior pharynx and structures. Uvula is midline no trismus. Neck: trachea midline, no lymphadenopathy. No nuchal rigidity. Cardiovascular: peripheral perfusion normal 2+ equal and symmetric, S1 and S2 present, no M/R/G. RRR Respiratory: no respiratory distress, lungs clear to auscultation b/l, respirations full and symmetric. No flail chest, chest wall tenderness or crepitus noted. Speaking in full smooth sentences. Abdomen: nondistended, obese, no pulsatile mass Extremities: Warm and appear well perfused. Moving extremities without difficulty. Psych: Cooperative, calm. Neuro: Alert and orientated. No obvious focal deficits. Vital Signs: Vital Signs - 24 hr 07/18/25 14:53 Temperature 97 F Pulse Rate 70 Respiratory Rate 18 Blood Pressure 223/105 H Pulse Oximetry 95 Oxygen Delivery Method Room Air BMI result Body Mass Index 33.7 rechecked BP at bedside without medical intervention: 166/97. no sxs Course Course Course Narrative: This is a Rapid Medical Examination (RME) performed by Almaz Campbell PA-C in triage. Full HPI, ROS, assessment and treatment plan per primary provider in the Main ED. Hx: 59 yo F hx of hypertension, depression, current tobacco smoker here for eval of high BP and low HR from PCP office. took BP meds this morning. PE/vitals: hypertensive to 223/105 Plan: labs, ekg Medical Decision Making Medical Decision Making [facility] Narrative: 59 y/o F with hx sig for LINNEA, nicotine dependence, and cholecystecomy presenting to the ED today for elevation of asx elevated blood pressure noted by PCP. H and P as above, patient arrived with severe HTN at 223/105. She did not endorse any red flag sxs suggestive of end organ damage. She rec'd RME with basic labs and EKG ordered. I received her in care after these resulted. EKG initially reviewed by attending MD and no STEMI noted. HTN emergency would have been considered immediately had er symptoms been suggestive of such. EK bpm, 1st degree AV block with left axis deviation. No malignant arrhythmia or ischemia noted. Troponin is under positive threshold. No cp/sbob. Repeat is not indicated. There is no evidence of kidney injury. No headache or vision changes, CT was deferred. Patient's PE is benign other than body habitus noted to be obese. BP was rechecked and while still in the stage II HTN class, improved without medical intervention to 166/97. She remains asx. I did not feel it was appropriate to initate antihypertensive medications in the ED as she has adequate follow up established with PCP. She is not dizzy or lightheaded. I feel it is appropriate for her to follow up outpatient with cardiology in regards to asx first degree AV block being present. There is not a medical cause for admission today to warrant further work up. Discussed work up with patient and diagnoses. She demonstrated verbal understanding of the plan and agreed; she was d/c to home stable with ER return precautions. Differential Diagnosis Differential Diagnoses: The differential diagnosis associated with the presentation includes HTN emergency severe HTN Admission/Observation Consideration of admission/observation: Escalation of care including admission/observation considered Lab Data MDM Lab Attestation statement: I reviewed the patient's lab results. 07/18/25 15:30 07/18/25 15:30 Labs: Lab Results 07/18/25 Range/Units 15:30 WBC 7.9 (4.8-10.8) X10*3/uL RBC 4.01 L (4.20-5.50) X10*6/uL Hgb 12.0 (12.0-16.0) g/dl Hct 36.2 L (37.0-47.0) % MCV 90.3 (80.0-98.0) fL MCH 29.9 (27.0-33.0) pg MCHC 33.1 (31.0-35.0) g/dl RDW 12.9 (11.0-16.0) % Plt Count 225 (160-400) X10*3/uL MPV 10.4 (9.4-12.3) fL Immature Gran % (Auto) 0.4 (0.0-0.4) % Neut % (Auto) 67.7 (45-73) % Lymph % (Auto) 22.7 (20-40) % Anson % (Auto) 6.4 (2-11) % Eos % (Auto) 2.2 (0-4) % Baso % (Auto) 0.6 (0-2) % Lymph # (Auto) 1.8 (1.2-4.9) X10*3/uL Anson # (Auto) 0.5 (0.1-1.2) X10*3/uL Eos # (Auto) 0.2 (0.0-0.4) X10*3/uL Baso # (Auto) 0.1 (0.0-0.2) X10*3/uL Abs Immat Gran (auto) 0.03 (0.00-0.03) X10*3/uL Absolute Neuts (auto) 5.3 (2.0-8.3) x10*3/uL Absolute Nucleated RBC 0.000 (0.0-0.012) X10*3/uL Nucleated RBC % (auto) 0.0 (0.0-0.2) /100WBC Sodium 140 (135-145) mmol/L Potassium 3.9 (3.3-5.1) mmol/L Chloride 107 (96-108) mmol/L Carbon Dioxide 26 (22-29) mmol/L Anion Gap 11 L (12-20) BUN 14 (9-16) mg/dL Creatinine 0.97 (0.5-1.4) mg/dL Estim Creat Clear Calc 75.7 Estimated GFR 59 Random Glucose 81 (60-115) mg/dL Calcium 9.1 D (8.4-10.2) mg/dL Magnesium 2.2 (1.6-2.6) mg/dL Total Bilirubin 0.4 (0.0-1.0) mg/dL AST 19 (5-31) U/L ALT 6 (0-31) U/L Alkaline Phosphatase 54 (39-117) U/L Troponin I High Sens 3.4 (<3.5-17.0) ng/L Total Protein 6.2 L (6.5-8.0) g/dL Albumin 4.0 (3.5-5.0) g/dL Lipase 15 (8-78) U/L Independent Interpretation I performed an independent interpretation of an: EKG Interpretation: See MDM External Record Review External record reviewed: Primary care record Tests considered The following testing was considered but not selected: See [facility] Prescription Management I considered prescription management with: Other Chronic Conditions Patient?s care impacted by: Other (Obesity) Social Determinants Patient?s care significantly limited by Social Determinants of Health including: Other Social Determinant of Health Discharge Plan Discharge Clinical Impression: Hypertension, Atrioventricular block, first degree Patient Disposition: Home, Self-Care Instructions: Hypertension (ED) Additional Instructions: YOu were seen in the emergency department today for elevated blood pressure with an abnormal EKG in outpatient setting. You were not endorsing any symptoms and have continued to not endorse any symptoms while here. Your blood pressure decreased while here without any medical intervention it does not meet hypertensive emergency guidelines. Please take your nifedipine medication when you get home as regularly scheduled. Please continue to take your blood pressure medication in the morning as well. Your EKG shows that you have a first-degree heart block. There is a pause between the top of your heart and the bottom of your heart jam, but no skipped beats. At this time no medical intervention is required for this but you should follow up outpatient with a boat fueler. Please return to the emergency department should you experience any headache dizziness chest pain shortness of breath palpitations or worsening symptoms. Prescriptions: No Action nifedipine 30 mg tablet extended release 24hr 30 mg PO QAM chlorthalidone 25 mg tablet 25 mg PO QAM mirtazapine 7.5 mg tablet 7.5 mg PO BEDTIME diphenhydramine HCl 25 mg Tablet 25 mg PO BEDTIME gabapentin 300 mg capsule 300 mg PO TID olmesartan 40 mg tablet 40 mg PO QAM cholecalciferol (vitamin D3) [Vitamin D3] 50 mcg (2,000 unit) capsule 50 mcg PO DAILY melatonin 10 mg Tablet 10 - 20 mg PO BEDTIME oxycodone [OxyContin] 15 mg tablet,oral only,ext.rel.12 hr 15 mg PO Q12H tizanidine 4 mg tablet 4 mg PO Q8H budesonide-formoterol [Symbicort] 80-4.5 mcg/actuation HFA aerosol inhaler 2 puff inhalation Q4-6H PRN (Reason: dyspnea) citalopram 40 mg tablet 40 mg PO DAILY naproxen 500 mg tablet 500 mg PO BID loratadine 10 mg tablet 10 mg PO DAILY furosemide 40 mg tablet 40 mg PO DAILY Referrals: [facility] [Provider Group] Clinical Impression: Atrioventricular block, first degree; Hypertension Interventions: ED Discharge Assessment Last Done: 07/18/25 18:29 Discharge Date/Time: 07/18/25 18:47 Print Language: Paraguayan
--- NOTE | 2025-07-18 14:56 | ECG_ITS ---
Test Reason : HYPERTENSIVE Blood Pressure : */* mmHG Vent. Rate : 64 BPM Atrial Rate : 64 BPM P-R Int : 212 ms QRS Dur : 88 ms QT Int : 438 ms P-R-T Axes : 77 -43 12 degrees QTcB Int : 451 ms Sinus rhythm with 1st degree A-V block Left axis deviation Septal infarct (cited on or before 30-Mar-2020) Abnormal ECG When compared with ECG of 28-May-2020 18:45, OH interval has increased T wave inversion no longer evident in Anterior leads Referred By: Becca Campbell Electronically Signed By: ISAIAH FRANCO
[2025-07-18 15:48] LABS: MANUAL DIFF FLAG NO
[2025-07-18 15:49] LABS: Hematocrit 36.2 % (37.0-47.0); Hemoglobin 12.0 g/dl (12.0-16.0); Imm Gran Abs Auto 0.03 X10*3/uL (0.00-0.03); Imm Gran Pct Auto 0.4 % (0.0-0.4); Lymphocytes Absolute Auto 1.8 X10*3/uL (1.2-4.9); Mean Corpuscular HGB Conc 33.1 g/dl (31.0-35.0); Mean Corpuscular Hemoglobin 29.9 pg (27.0-33.0); Mean Corpuscular Volume 90.3 fL (80.0-98.0); NRBC Abs Auto 0.000 X10*3/uL (0.0-0.012); NRBC Pct Auto 0.0 /100WBC (0.0-0.2); Platelet Count 225 X10*3/uL (160-400); Red Blood Count 4.01 X10*6/uL (4.20-5.50); White Blood Count 7.9 X10*3/uL (4.8-10.8)
[2025-07-18 16:08] LABS: Alanine Aminotransferase 6 U/L (0-31); Albumin Level 4.0 g/dL (3.5-5.0); Alkaline Phosphatase 54 U/L (39-117); Anion Gap 11 (12-20); Aspartate Amino Transferase 19 U/L (5-31); Blood Urea Nitrogen 14 mg/dL (9-16); Calcium 9.1 mg/dL (8.4-10.2); Carbon Dioxide 26 mmol/L (22-29); Chloride 107 mmol/L (96-108); Creatinine Clr Calc Pharmacy 75.7; Estimated Glomerular Filt Rate 59; Lipase 15 U/L (8-78); Magnesium 2.2 mg/dL (1.6-2.6); Potassium 3.9 mmol/L (3.3-5.1); Sodium 140 mmol/L (135-145); Total Protein 6.2 g/dL (6.5-8.0)
[2025-07-18 16:10] LABS: Troponin-I High Sensitivity 3.4 ng/L (<3.5-17.0)
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
--- OUTSIDE RECORDS SUMMARY | 2025-07-18 16:51 | XMS_ITS | Encounter Summary ---
Author Organization [employer] Address 75 [facility] 7t [place] [address] Care Team Providers Care Ten Pin Bowling Centre Manager Name Role Phone [facility] Primary Care Provider [phone] [facility] Primary Care Provider [phone] Reason for Visit * Reason Onset Date Comments Med Refill 08/22/2023 Encounter Details Date Type Department Care Team ([facility] st Contact Info) Description 08/22/2023 Refill [facility] MEDICINE [address] [place] [address] [facility] 230 [place], [place] [phone] Muscle spasm Social History Tobacco Use Types Packs/Day Years Used Date Smoking Tobacco: Every Day Cigarettes Passive Smoke Exposure: Current Smokeless Tobacco: Never Alcohol Use Standard Drinks/Week Comments Never 0 (1 standard drink = 0.6 oz pur e alcohol) Depression Answer Date Recorded Patient Health Questionnaire-9 Score 0 10/18/2022 Housing Stability Answer Date Recorded What is your housing situation today? I have ngoc frankel 07/03/[address] you li ve. Do you have problems with any of the following? None of the above 07/03/2023 Food Insecurity Answer Date Recorded Within the past 12 months, y ou worried that your food would run out before you got money to buy more: Never True 07/03/2023 Within the past 12 months,th e food you bought just didn't last and you didn't have enough money to get more: Never True Transportation Answer Date Recorded In the past 12 months, has l ack of transportation kept you from medical appts, meetings, work or from getting things needed for daily living? No 07/03/2023 Utilities Answer Date Recorded In the past 12 months, has t he electric, gas, oil or water company threatened to shut off services in your home? No 07/03/2023 Depression Answer Date Recorded Patient Health Questionnaire-2 Score 0 10/18/2022 Comments Unknown Sex and Gender Information Value [...] Description 08/18/2025 11:30 AM EST Clinical Support [facility] MEDICINE [address] [place] [address] Carley Sesay RN documented as of this encounter Visit Diagnoses Diagnosis Muscle spasm Spasm of muscle documented in this encounter Additional Health Concerns Assessment Noted Time PHQ-9 Depression Total Score: 0 10/18/19 23 10:09 AM EST documented as of this encounter Care Teams [employer] [place] Manager Relationship Specialty Start Date End Date Marianela Jeff FNP 230 [place] [address] PCP - General Family Medicine 03/27/22 06/24/24 Marianela Jeff FNP [address] [place] [address] PCP - General Family Medicine 07/02/24 documented as of this encounter
--- OUTSIDE RECORDS SUMMARY | 2025-07-18 16:51 | XMS_ITS | Encounter Summary ---
Author Organization [employer] Address 75 [facility] 7[address] [place] [address] Care Team Providers Care Solutions Operator Name Role Phone [place] [facility] Primary Care Provider [phone] Reason for Visit * Reason Onset Date Comments Call Back Request 03/31/2025 Encounter Details Date Type Department Care Team ([facility] Contact Info) Description 03/31/2025 Telephone [facility] MEDICINE [address] [place], [place] [phone] [facility] 230 [place], [place] [phone] Call Back Request Social History Tobacco Use Types Packs/Day Years [...] AM EDT documented as of this encounter Miscellaneous Notes * Telephone Encounter - Aden Humphrey - 03/31/2025 4:16 PM EDT Tc from Mary Jo with [facility] calling to inform pt has been having multiple mental and physical issues such as depression and so forth. Mary Jo visited pt's home and noted clutter as well as over vegetationand feels pt is neglecting herself and is in need of help. Mary Jo is requesting a call back to verify any possible rehab or services for pt to get the help she needs. Please contact Mary Jo at [phone]. documented in this encounter Plan of Treatment Upcoming Encounters Date Type Department Care Team (Late st Contact Info) Description 08/18/2025 11:30 AM EST Clinical Support [facility] MEDICINE [address] [place] [address] Carley Sesay RN documented as of this encounter Visit Diagnoses Not on filedocumented in this encounter Additional Health Concerns Assessment Noted Time PHQ-9 Depression Total Score: 11 025 9:52 AM EDT documented as of this encounter Care Teams Solutions Operator Relationship Specialty Start Date End Date Marianela Jeff FNP 230 [place] [address] PCP - General Family Medicine 07/02/24 documented as of this encounter
--- OUTSIDE RECORDS SUMMARY | 2025-07-18 16:51 | XMS_ITS | Encounter Summary ---
Author Organization [employer] Address 75 [facility] 7t [place] [address] Care Team Providers Care Verifying Machine Operator Name Role Phone [facility] Primary Care Provider [phone] Reason for Visit * Reason Onset Date Comments Med Refill 07/18/2025 Encounter Details Date Type Department Care Team (Late st Contact Info) Description 07/18/2025 Refill [facility] MEDICINE 230 [place] [address] Carley Sesay RN Primary osteoarthritis of right hip Social History Tobacco Use Types Packs/Day Years [...] Description 08/18/2025 11:30 AM EST Clinical Support [facility] MEDICINE 230 [place] [address] Carley Sesay RN documented as of this encounter Visit Diagnoses Diagnosis Primary osteoarthritis of right hip documented in this encounter Additional Health Concerns Assessment Noted Time PHQ-9 Depression Total Score: 11 025 9:52 AM EDT documented as of this encounter Care Teams Verifying Machine Operator Relationship Specialty Start Date End Date Marianela Jeff FNP 230 [place] [address] PCP - General Family Medicine 07/02/24 documented as of this encounter
--- OUTSIDE RECORDS SUMMARY | 2025-07-18 16:51 | XMS_ITS | Encounter Summary ---
Author Organization [employer] Address 75 [facility] 7t [place] [address] Care Team Providers Care Pattern Painter Name Role Phone [facility] Primary Care Provider [phone] [facility] Primary Care Provider Reason for Visit * Reason Comments Med Refill Encounter Details Date Type Department Care Team ([facility] Contact Info) Description 07/10/2023 Refill [facility] MEDICINE 230 [place], [place] [phone] Penny Berg FNP Recurrent major depressive disorder, in partial remission (CMS/HCC) Social History Tobacco Use Types Packs/Day Years [...] 08/18/2025 11:30 AM EST Clinical Support [facility] MEDICINE 230 [place] [address] Carley Sesay RN documented as of this encounter Visit Diagnoses Diagnosis Recurrent major depressive disorder, in partial remission (CMS/HCC) documented in this encounter Additional Health Concerns Assessment Noted Time PHQ-9 Depression Total Score: 0 10/18/19 23 10:09 AM EST documented as of this encounter Care Teams Pattern Painter Relationship Specialty Start Date End Date Marianela Jeff FNP 230 [place] [address] PCP - General Family Medicine 03/27/22 06/24/24 BrunswickMarianela FNP 230 [place] [address] PCP - General Family Medicine 07/02/24 documented as of this encounter
--- OUTSIDE RECORDS SUMMARY | 2025-07-18 16:51 | XMS_ITS | Encounter Summary ---
Author Organization [employer] Address 75 [facility] [address] [place] [address] Care Team Providers Care Procedure Manager Name Role Phone [place] [facility] Primary Care Provider [phone] Reason for Visit * Reason Onset Date Comments Med Refill 06/18/2025 Encounter Details Date Type Department Care Team ([facility] Contact Info) Description 06/18/2025 Telephone [facility] MEDICINE 230 [place], [place] [phone] [facility] 230 [place] [address] Med Refill Social History Tobacco Use Types Packs/Day Years [...] encounter Miscellaneous Notes * Telephone Encounter - Mayra Owens LPN - 06/18/2025 10:10 AM EDT Script was sent to [facility] on 03/19/25 with 11 refills. * Telephone Encounter - Aden Humphrey - 06/18/2025 10:06 AM EDT TC from pt requesting medication refill. Medications needing refill: albuterol (ProAir HFA) 108 (90 Base) MCG/ACT inhaler To be sent to: [facility] - [place], [place] - [address] [facility] documented in this encounter Plan of Treatment Upcoming Encounters Date Type Department Care Team (Late st Contact Info) Description 08/18/2025 11:30 AM EST Clinical Support [facility] MEDICINE [address] [place] [address] Calrey Sesay RN documented as of this encounter Visit Diagnoses Not on filedocumented in this encounter Additional Health Concerns Assessment Noted Time PHQ-9 Depression Total Score: 11 025 9:52 AM EDT documented as of this encounter Care Teams Procedure Manager Relationship Specialty Start Date End Date TomerMarianela steele FNP [address] [place] [address] PCP - General Family Medicine 07/02/24 documented as of this encounter
--- OUTSIDE RECORDS SUMMARY | 2025-07-18 16:51 | XMS_ITS | Encounter Summary ---
Author Organization [employer] Address 75 [facility] 7 [place] [address] Care Team Providers Care Roller Man Name Role Phone [facility] [facility] Primary Care Provider [phone] Reason for Visit * Reason Onset Date Comments PT-1 01/08/2025 Encounter Details Date Type Department Care Team ([facility] Contact Info) Description 01/08/2025 Telephone [facility] MEDICINE 230 [place], [place] [phone] [facility] 230 [place] [address] PT-1 Social History Tobacco Use Types Packs/Day Years Used Date Smoking Tobacco: Every Day Cigarettes Passive Smoke Exposure: Current Smokeless Tobacco: Never Alcohol Use Standard Drinks/Week Comments Never 0 (1 standard drink = 0.6 oz pur e alcohol) Depression Answer Date Recorded Patient Health Questionnaire-9 Score 3 09/09/2024 Patient Health Questionnaire-9 Score 3 09/09/2024 Last PHQ-9: Questionnaire Data Not on file 1 11/10/2023 Housing Stability Answer Date Recorded What is [...] Answer Date Recorded Patient Health Questionnaire-2 Score 1 09/09/2024 Internet Access Answer Date Recorded Internet Access [...] encounter Miscellaneous Notes * Telephone Encounter - Ray Baker - 01/08/2025 3:25 PM EDT Patient calling requesting PT1 Home Address verified: Y/N: Yes Provider name or facility name: [address] [place] [address] Escort needed: Y/N: No Do you have a wheelchair: Y/N: No If yes- Manual or electric: Visits: (3 x monthly) documented in this encounter Plan of Treatment Upcoming Encounters Date Type Department Care Team (Late st Contact Info) Description 08/18/2025 11:30 AM EST Clinical Support [facility] 230 [place] [address] Carley Sesay RN documented as of this encounter Visit Diagnoses Not on filedocumented in this encounter Additional Health Concerns Assessment Noted Time PHQ-9 Depression Total Score: 3 09/09/20 24 1:14 PM EST documented as of this encounter Care Teams Roller Man Relationship Specialty Start Date End Date Marianela Jeff FNP 230 [place] [address] PCP - General Family Medicine 10/15/24 documented as of this encounter
--- OUTSIDE RECORDS SUMMARY | 2025-07-18 16:51 | XMS_ITS | Encounter Summary ---
Author Organization [employer] Address 75 [facility] 7[address] [place] [address] Care Team Providers Care Spring Forger Name Role Phone [facility] Primary Care Provider [phone] [facility] Primary Care Provider [phone] Reason for Visit * Reason Comments Med Refill Encounter Details Date Type Department Care Team ([facility] st Contact Info) Description 08/06/2023 Refill [facility] MEDICINE 230 [place] [address] [facility] 230 [place] [address] Social History Tobacco Use Types Packs/Day Years [...] Description 08/18/2025 11:30 AM EST Clinical Support [facility] MEDICINE [address] [place] [address] Carley Sesay RN documented as of this encounter Visit Diagnoses Not on filedocumented in this encounter Additional Health Concerns Assessment Noted Time PHQ-9 Depression Total Score: 0 10/18/19 23 10:09 AM EST documented as of this encounter Care Teams Spring Forger Relationship Specialty Start Date End Date TomerMarianela steele FNP 230 [place] [address] PCP - General Family Medicine 03/27/22 06/24/24 [place] FNP 230 [place] [address] PCP - General Family Medicine 07/02/24 documented as of this encounter
--- OUTSIDE RECORDS SUMMARY | 2025-07-18 16:51 | XMS_ITS | Encounter Summary ---
Author Organization [employer] Address 75 [facility] 7t [place] [address] Care Team Providers Care Human Relations Teacher Name Role Phone [facility] Primary Care Provider [phone] Reason for Visit * Reason Comments Med Refill Encounter Details Date Type Department Care Team ([facility] st Contact Info) Description 03/18/2025 Refill [facility] MEDICINE 230 [place], [place] [phone] [facility] 230 [place] [address] Mild intermittent asthma without complication Social History Tobacco Use Types Packs/Day Years [...] Description 08/18/2025 11:30 AM EST Clinical Support [facility] MEDICINE 230 [place] [address] Carley Sesay, RN documented as of this encounter Visit Diagnoses Diagnosis Mild intermittent asthma without complication documented in this encounter Additional Health Concerns Assessment Noted Time PHQ-9 Depression Total Score: 11 025 9:52 AM EDT documented as of this encounter Care Teams Human Relations Teacher Relationship Specialty Start Date End Date Marianela Jeff FNP 230 [place] [address] PCP - General Family Medicine 07/02/24 documented as of this encounter
--- OUTSIDE RECORDS SUMMARY | 2025-07-18 16:51 | XMS_ITS | Encounter Summary ---
Author Organization [employer] Address 75 [facility] 7[address] [place] [address] Care Team Providers Care Shop Teacher Name Role Phone [place] [facility] Primary Care Provider [phone] Reason for Visit * Reason Onset Date Comments chart prep 07/17/2025 Encounter Details Date Type Department Care Team ([facility] st Contact Info) Description 07/17/2025 Telephone [facility] MEDICINE 230 [place], [place] [phone] [facility] 230 [place], [place] [phone] chart prep Social History Tobacco Use Types Packs/Day Years [...] encounter Miscellaneous Notes * Telephone Encounter - Yvonne Aranda MA - 07/17/2025 11:46 AM EDT Chart Prep Labs: done Images: not applicable Referrals: complete Vaccines due: Covid, Flu, and Hep B Screenings: mammogram and pap smear Overdue care gaps: Not applicable documented in this encounter Plan of Treatment Upcoming Encounters Date Type Department Care Team (Late st Contact Info) Description 08/18/2025 11:30 AM EST Clinical Support [facility] MEDICINE 230 [place] [address] Carley Sesay, RN documented as of this encounter Visit Diagnoses Not on filedocumented in this encounter Additional Health Concerns Assessment Noted Time PHQ-9 Depression Total Score: 11 025 9:52 AM EDT documented as of this encounter Care Teams Shop Teacher Relationship Specialty Start Date End Date Marianela Jeff FNP 230 [place] [address] PCP - General Family Medicine 07/02/24 documented as of this encounter
--- OUTSIDE RECORDS SUMMARY | 2025-07-18 16:51 | XMS_ITS | Encounter Summary ---
Author Organization [employer] Address 75 [facility] 7[address] [place] [address] Care Team Providers Care Outside Medical Sales Representative Name Role Phone [facility] Primary Care Provider [phone] [facility] Primary Care Provider [phone] Reason for Visit * Reason Comments Med Refill Encounter Details Date Type Department Care Team ([facility] st Contact Info) Description 08/16/2023 Refill [facility] MEDICINE 230 [place] [address] [facility] 230 [place] [address] Social History Tobacco Use Types Packs/Day Years [...] Description 08/18/2025 11:30 AM EST Clinical Support [facility] MEDICINE [address] [place] [address] Carley Sesay RN documented as of this encounter Visit Diagnoses Not on filedocumented in this encounter Additional Health Concerns Assessment Noted Time PHQ-9 Depression Total Score: 0 10/18/19 23 10:09 AM EST documented as of this encounter Care Teams Outside Medical Sales Representative Relationship Specialty Start Date End Date TomerMarianela steele FNP [address] [place] [address] PCP - General Family Medicine 03/27/22 06/24/24 [facility] [address] [place] [address] PCP - General Family Medicine 07/02/24 documented as of this encounter
--- OUTSIDE RECORDS SUMMARY | 2025-07-18 16:51 | XMS_ITS | Encounter Summary ---
Author Organization [employer] Address 75 [facility] 7t [place] [address] Care Team Providers Care Blind Eyeletter Name Role Phone [place] [facility] Primary Care Provider [phone] Reason for Visit * Reason Onset Date Comments Med Refill 03/18/2025 Encounter Details Date Type Department Care Team ([facility] st Contact Info) Description 03/18/2025 Refill [facility] [address] [place] [address] [facility] [address] [place] [address] Primary osteoarthritis of right hip Social History [...] Description 08/18/2025 11:30 AM EST Clinical Support [facility] MEDICINE 230 [place] [address] Carley Sesay RN documented as of this encounter Visit Diagnoses Diagnosis Primary osteoarthritis of right hip documented in this encounter Additional Health Concerns Assessment Noted Time PHQ-9 Depression Total Score: 11 025 9:52 AM EDT documented as of this encounter Care Teams Blind Eyeletter Relationship Specialty Start Date End Date Marianela Jeff FNP 230 [place] [address] PCP - General Family Medicine 07/02/24 documented as of this encounter
--- OUTSIDE RECORDS SUMMARY | 2025-07-18 16:51 | XMS_ITS | Encounter Summary ---
Author Organization [employer] Address 75 [facility] 7 [place] [address] Care Team Providers Care Training Project Manager Name Role Phone [facility] Primary Care Provider [phone] Reason for Visit * Reason Onset Date Comments Med Refill 06/12/2025 Encounter Details Date Type Department Care Team ([facility] st Contact Info) Description 06/12/2025 Refill [facility] MEDICINE 230 [place] [address] [facility] 230 [place] [address] Recurrent major depressive disorder, in partial remission (CMS/[facility]) Social History Tobacco Use Types Packs/Day Years [...] Description 08/18/2025 11:30 AM EST Clinical Support [facility]ICINE 230 [place] [address] Carley Sesay RN documented as of this encounter Visit Diagnoses Diagnosis Recurrent major depressive disorder, in partial remission (CMS/HCC) documented in this encounter Additional Health Concerns Assessment Noted Time PHQ-9 Depression Total Score: 11 025 9:52 AM EDT documented as of this encounter Care Teams Training Project Manager Relationship Specialty Start Date End Date Marianela Jeff FNP 230 [place] [address] PCP - General Family Medicine 07/02/24 documented as of this encounter
--- OUTSIDE RECORDS SUMMARY | 2025-07-18 16:51 | XMS_ITS | Encounter Summary ---
Author Organization [employer] Address 75 [facility] 7t [place] [address] Care Team Providers Care University Partnership Rep Name Role Phone [facility] Primary Care Provider [phone] [facility] Primary Care Provider [phone] Reason for Visit * Reason Onset Date Comments Med Refill 08/22/2023 Encounter Details Date Type Department Care Team ([facility] st Contact Info) Description 08/22/2023 Refill [facility] MEDICINE [address] [place] [address] [facility] 230 [place], [place] [phone] Anxiety Social History Tobacco Use Types Packs/Day Years [...] Description 08/18/2025 11:30 AM EST Clinical Support [facility] MEDICINE [address] [place] [address] Carley Sesay RN documented as of this encounter Visit Diagnoses Diagnosis Anxiety Anxiety state, unspecified documented in this encounter Additional Health Concerns Assessment Noted Time PHQ-9 Depression Total Score: 0 10/18/19 23 10:09 AM EST documented as of this encounter Care Teams [employer] Partnership Rep Relationship Specialty Start Date End Date Marianela Jeff FNP 230 [place] [address] PCP - General Family Medicine 03/27/22 06/24/24 Marianela Jeff FNP [address] [place] [address] PCP - General Family Medicine 07/02/24 documented as of this encounter
--- OUTSIDE RECORDS SUMMARY | 2025-07-18 16:51 | XMS_ITS | Encounter Summary ---
Author Organization [employer] Address 75 [facility] 7t [place] [address] Care Team Providers Care Slope Tender Name Role Phone [place] [facility] Primary Care Provider [phone] Encounter Details Date Type Department Care Team (Latest Contact Info) Description 07/18/2025 Travel Social History Tobacco Use Types Packs/Day Years [...] Description 08/18/2025 11:30 AM EST Clinical Support [facility] [address] [place] [address] Carley Sesay RN documented as of this encounter Visit Diagnoses Not on filedocumented in this encounter Additional Health Concerns Assessment Noted Time PHQ-9 Depression Total Score: 11 025 9:52 AM EDT documented as of this encounter Care Teams Slope Tender Relationship Specialty Start Date End Date Marianela Jeff FNP 230 [place] [address] PCP - General Family Medicine 07/02/24 documented as of this encounter
--- OUTSIDE RECORDS SUMMARY | 2025-07-18 16:51 | XMS_ITS | Encounter Summary ---
Author Organization [employer] Address 75 [facility] 7t [place] [address] Care Team Providers Care Foster Care Worker Name Role Phone [place] [facility] Primary Care Provider [phone] [facility] Primary Care Provider [phone] Reason for Visit * Reason Onset Date Comments Med Refill 07/25/2023 Encounter Details Date Type Department Care Team ([facility] st Contact Info) Description 07/25/2023 Telephone [facility] MED[facility]INE 230 [place] [address] [facility] 230 [place], [place] [phone] Med Refill Social History Tobacco Use Types [...] encounter Miscellaneous Notes * Telephone Encounter - Amaya Hillman - 07/25/2023 4:26 PM EST Tc from pt requesting medication refill on oxyCODONE (Roxicodone) 5 MG immediate release tablet to be sent to [facility] - [place], [place] - [address] [place] [address] documented in this encounter Plan of Treatment Upcoming Encounters Date Type Department Care Team (Late st Contact Info) Description 08/18/2025 11:30 AM EST Clinical Support [facility] [address] [facility] [place] [address] Carley Sesay, RN documented as of this encounter Visit Diagnoses Not on filedocumented in this encounter Additional Health Concerns Assessment Noted Time PHQ-9 Depression Total Score: 0 10/18/19 23 10:09 AM EST documented as of this encounter Care Teams Foster Care Worker Relationship Specialty Start Date End Date Marianela Jeff FNP [address] [facility] [place] [address] PCP - General Family Medicine 03/27/22 06/24/24 Marianela Jeff FNP [address] [facility] [place] [address] PCP - General Family Medicine 07/02/24 documented as of this encounter
--- OUTSIDE RECORDS SUMMARY | 2025-07-18 16:51 | XMS_ITS | Encounter Summary ---
Author Organization [employer] Address 75 [facility] 7t [place] [address] Care Team Providers Care Cake Decorator Name Role Phone [place] [facility] Primary Care Provider [phone] Reason for Visit * Reason Comments Med Refill Encounter Details Date Type Department Care Team ([facility] st Contact Info) Description 02/24/2025 Refill [facility] MED[facility]INE [address] [place] [address] Allie Boateng MD [address] [place] [address] Primary osteoarthritis of right hip Social History [...] your housing situation today? I have ngoc fraknel 01/01/[address] you li [...] AM EDT documented as of this encounter Functional Status * Over the past 2 weeks, how often have you been bothered by any of the following problems? Question Answer Date of Assessment Author Patient Health Questionnaire-2 Score 3 02/24/2025 9:52 AM EDT Lizbeth Irby MA * Little interest or pleasure in doing things Answer Date of Assessment Author More than half the days 02/24/2025 9:52 AM EDT Lizbeth Mcelroy MA * Feeling down, depressed, or hopeless Answer Date of Assessment Author Several days 02/24/2025 9:52 AM EDT Lizbeth Go MA * Trouble falling or staying asleep, or sleeping too much Answer Date of Assessment Author Several days 02/24/2025 9:52 AM EDT Lizbeth Go MA * Feeling tired or having little energy Answer Date of Assessment Author More than half the days 02/24/2025 9:52 AM EDT Lizbeth Mcelroy MA * Poor appetite or overeating Answer Date of Assessment Author More than half the days 02/24/2025 9:52 AM EDT Lizbeth Mcelroy MA * Feeling bad about yourself - or that you are a failure or have let yourself or your family down Answer Date of Assessment Author Several days 02/24/2025 9:52 AM Lizbeth Gupta MA * Trouble concentrating on things, such as reading the newspaper or watching television Answer Date of Assessment Author Several days 02/24/2025 9:52 AM Lizbeth Gupta MA * Moving or speaking so slowly that other people could have noticed? Or the opposite - being so fidgety or restless that you have been moving around a lot more than usual. Answer Date of Assessment Author Several days 02/24/2025 9:52 AM Lizbeth Gupta MA * Thoughts that you would be better off or hurting yourself in some way Answer Date of Assessment Author Not at all 02/24/2025 9:52 AM Lizbeth Gupta MA * Patient Health Questionnaire-9 Score Answer Date of Assessment Author 11 02/24/2025 9:52 AM Lizbeth Gupta MA * How difficult have these problems made it for you to do your work, take care of things at home, or get along with other people? Answer Date of Assessment Author Somewhat difficult 02/24/2025 9:52 AM Lizbeth Solis MA * Over the last 2 weeks, how often have you been bothered by any of the following problems? Question Answer Date of Assessment Author Feeling nervous, anxious, or on edge 3 02/24/2025 9:53 AM Lizbeth Loera MA Not being able to stop or control worrying 2 02/24/2025 9:53 AM Lizbeth Loera MA Worrying too much about different things 2 02/24/2025 9:53 AM Lizbeth Loera MA Trouble relaxing 2 02/24/2025 9:53 AM Lizbeth Watson MA Being so restless that it is hard to sit still 2 02/24/2025 9:53 AM Lizbeth Loera MA Becoming easily annoyed or irritable 1 02/24/2025 9:53 AM EDT Lizbeth Irby MA Feeling afraid as if something awful might happen 1 02/24/2025 9:53 AM EDT Lizbeth Carrera MA LAKHWINDER-7 Total Score 13 02/24/2025 9:53 AM EDT Lizbeth Irby MA documented as of this encounter Plan of Treatment Upcoming Encounters Date Type Department Care Team (Late st Contact Info) Description 08/18/2025 11:30 AM EST Clinical Support [facility] MEDICINE [address] [place] [address] Carley Sesay RN documented as of this encounter Visit Diagnoses Diagnosis Primary osteoarthritis of right hip documented in this encounter Additional Health Concerns Assessment Noted Time PHQ-9 Depression Total Score: 11 025 9:52 AM EDT documented as of this encounter Care Teams Cake Decorator Relationship Specialty Start Date End Date Marianela Jeff FNP [address] [place] [address] PCP - General Family Medicine 07/02/24 documented as of this encounter
--- OUTSIDE RECORDS SUMMARY | 2025-07-18 16:51 | XMS_ITS | Encounter Summary ---
Author Organization [employer] Address 75 [facility] 7t [place] [address] Care Team Providers Care Global Position System Technician Name Role Phone [facility] Primary Care Provider [phone] [facility] Primary Care Provider [phone] Reason for Visit * Reason Comments Med Refill Encounter Details Date Type Department Care Team ([facility] st Contact Info) Description 08/21/2023 Refill [facility] MED[facility]INE [address] [place] [address] [facility] 230 [place] [address] Muscle spasm; Anxiety Social History Tobacco Use Types Packs/Day [...] Description 08/18/2025 11:30 AM EST Clinical Support [facility] [address] [place] [address] Carley Sesay RN documented as of this encounter Visit Diagnoses Diagnosis Muscle spasm Spasm of muscle Anxiety Anxiety state, unspecified documented in this encounter Additional Health Concerns Assessment Noted Time PHQ-9 Depression Total Score: 0 10/18/19 23 10:09 AM EST documented as of this encounter Care Teams Global Position System Technician Relationship Specialty Start Date End Date Marianela Jeff FNP [address] [place] [address] PCP - General Family Medicine 03/27/22 06/24/24 Marianela Jeff FNP [address] [place] [address] PCP - General Family Medicine 07/02/24 documented as of this encounter
--- OUTSIDE RECORDS SUMMARY | 2025-07-18 16:52 | XMS_ITS | Encounter Summary ---
Author Organization [employer] Address 75 [facility] 7t [place] [address] Care Team Providers Care Stockroom Selector Name Role Phone [place] [facility] Primary Care Provider [phone] Reason for Visit * Reason Comments Med Refill Encounter Details Date Type Department Care Team ([facility] st Contact Info) Description 12/09/2024 Refill [facility] MED[facility]INE 230 [place], [place] [phone] [facility] 230 [place] [address] Social History Tobacco Use Types Packs/Day Years [...] Recorded Patient Health Questionnaire-2 Score 1 09/09/2024 Comments Unknown Sex and Gender Information Value [...] Description 08/18/2025 11:30 AM EST Clinical Support [facility] [address] [place] [address] Carley Sesay RN documented as of this encounter Visit Diagnoses Not on filedocumented in this encounter Additional Health Concerns Assessment Noted Time PHQ-9 Depression Total Score: 3 09/09/20 24 1:14 PM EST documented as of this encounter Care Teams Stockroom Selector Relationship Specialty Start Date End Date Marianela Jeff FNP 230 [place] [address] PCP - General Family Medicine 07/02/24 documented as of this encounter
--- OUTSIDE RECORDS SUMMARY | 2025-07-18 16:52 | XMS_ITS | Encounter Summary ---
Author Organization [employer] Address [address] [place] [address] 7 [place] [address] Care Team Providers Care Deburrer Strip Name Role Phone [facility] Primary Care Provider [phone] [facility] Primary Care Provider Reason for Visit * Reason Onset Date Comments Med Refill 05/04/2023 Encounter Details Date Type Department Care Team ([facility] Contact Info) Description 05/04/2023 Refill [facility] [address] [place] [address] [facility] 230 [place], [place] [phone] Mild intermittent asthma without complication Social History Tobacco Use Types Packs/Day Years Used Date Smoking Tobacco: Every Day Cigarettes Passive Smoke Exposure: Current Smokeless Tobacco: Never Alcohol Use Standard Drinks/Week Comments Never 0 (1 standard drink = 0.6 oz pur e alcohol) Depression Answer Date Recorded Patient Health Questionnaire-9 Score 0 10/18/2022 Depression Answer Date Recorded Patient Health Questionnaire-2 Score 0 10/18/2022 Comments Unknown Sex and Gender Information Value Date Recorded Sex Assigned at Female 07/18/2022 10:15 AM EDT Legal Sex Female 10:15 AM EDT Gender Identity Female 07/18/2022 10:15 AM EDT Sexual Orientation Straight 07/18/2022 10 :15 AM EDT documented as of this encounter Plan of Treatment Upcoming Encounters Date Type Department Care Team ([facility] Contact Info) Description 08/18/2025 11:30 AM EST Clinical Support [facility] [address] [place] [address] Carley Sesay, RN documented as of this encounter Visit Diagnoses Diagnosis Mild intermittent asthma without complication documented in this encounter Additional Health Concerns Assessment Noted Time PHQ-9 Depression Total Score: 0 10/18/19 23 10:09 AM EST documented as of this encounter Care Teams Deburrer Strip Relationship Specialty Start Date End Date Marianela Jeff FNP [address] [facility] [place] [address] PCP - General Family Medicine 03/27/22 06/24/24 Marianela Jeff FNP [address] [facility] [place] [address] PCP - General Family Medicine 07/02/24 documented as of this encounter
--- OUTSIDE RECORDS SUMMARY | 2025-07-18 16:52 | XMS_ITS | Encounter Summary ---
Author Organization [employer] Address 75 [facility] 7t [place] [address] Care Team Providers Care Jacker Feeder Name Role Phone [facility] Primary Care Provider [phone] Reason for Visit * Reason Onset Date Comments Med Refill 12/09/2024 Encounter Details Date Type Department Care Team ([facility] st Contact Info) Description 12/09/2024 Refill [facility] MEDICINE [address] [place] [address] Lamar Power MD [address] [place] [address] Recurrent major depressive disorder, in partial remission [...] Description 08/18/2025 11:30 AM EST Clinical Support [facility] MED[facility]INE [address] [place] [address] Carley Sesay RN documented as of this encounter Visit Diagnoses Diagnosis Recurrent major depressive disorder, in partial remission (CMS/HCC) documented in this encounter Additional Health Concerns Assessment Noted Time PHQ-9 Depression Total Score: 3 09/09/20 24 1:14 PM EST documented as of this encounter Care Teams Jacker Feeder Relationship Specialty Start Date End Date Marianela Jeff FNP [address] [place] [address] PCP - General Family Medicine 07/02/24 documented as of this encounter
--- OUTSIDE RECORDS SUMMARY | 2025-07-18 16:52 | XMS_ITS | Encounter Summary ---
Author Organization [employer] Address 75 [facility] 7[address] [place] [address] Care Team Providers Care Survey Supervisor Name Role Phone [place] [facility] Primary Care Provider Reason for Visit * Reason Onset Date Comments FYI 12/10/2024 Encounter Details Date Type Department Care Team ([facility] st Contact Info) Description 12/10/2024 Telephone [facility] 230 [place], [place] [phone] [facility] 230 [place], [place] [phone] FYI Social History Tobacco Use Types Packs/Day Years [...] encounter Miscellaneous Notes * Telephone Encounter - Mariana Singh - 12/10/2024 10:18 AM EDT Tc from pt stating received a call after 5:30PM. No notes regarding a phone call, abstract writer not sure who was. documented in this encounter Plan of Treatment Upcoming Encounters Date Type Department Care Team (Late st Contact Info) Description 08/18/2025 11:30 AM EST Clinical Support [facility] [address] [place] [address] Carley Sesay RN documented as of this encounter Visit Diagnoses Not on filedocumented in this encounter Additional Health Concerns Assessment Noted Time PHQ-9 Depression Total Score: 3 09/09/20 24 1:14 PM EST documented as of this encounter Care Teams Survey Supervisor Relationship Specialty Start Date End Date Marianela Jeff FNP [address] [place] [address] PCP - General Family Medicine 07/02/24 documented as of this encounter
--- OUTSIDE RECORDS SUMMARY | 2025-07-18 16:52 | XMS_ITS | Encounter Summary ---
Author Organization [employer] Address 75 [facility] 7t [place] [address] Care Team Providers Care Milking Machine Operator Name Role Phone [place] [facility] Primary Care Provider [phone] Reason for Visit * Reason Onset Date Comments Med Refill 12/09/2024 Encounter Details Date Type Department Care Team ([facility] st Contact Info) Description 12/09/2024 Refill [facility] [address] [place] [address] [facility] [address] [place] [address] Social History Tobacco Use Types Packs/Day Years [...] Description 08/18/2025 11:30 AM EST Clinical Support [facility] [address] [place] [address] Carley Sesay RN documented as of this encounter Visit Diagnoses Not on filedocumented in this encounter Additional Health Concerns Assessment Noted Time PHQ-9 Depression Total Score: 3 09/09/20 24 1:14 PM EST documented as of this encounter Care Teams Milking Machine Operator Relationship Specialty Start Date End Date Marianela Jeff FNP [address] [place] [address] PCP - General Family Medicine 07/02/24 documented as of this encounter
--- OUTSIDE RECORDS SUMMARY | 2025-07-18 16:52 | XMS_ITS | Encounter Summary ---
Author Organization [employer] Address [address] [place] [address] Care Team Providers Care Touch Up Worker Name Role Phone [place] [facility] Primary Care Provider [phone] [facility] Primary Care Provider [phone] Reason for Visit * Reason Onset Date Comments Med Refill 06/01/2023 Encounter Details Date Type Department Care Team (Late Contact Info) Description 06/01/[address] [facility] MEDICINE [address] [place] [address] [facility] 230 [place] [address] Essential hypertension Social History Tobacco Use Types Packs/Day Years [...] Encounters Date Type Department Care Team (Late Contact Info) Description 08/18/2025 11:30 AM EST Clinical Support [facility] MEDICINE [address] [place] [address] Carley Sesay, JAYLENE documented as of this encounter Visit Diagnoses Diagnosis Essential hypertension Unspecified essential hypertension documented in this encounter Additional Health Concerns Assessment Noted Time PHQ-9 Depression Total Score: 0 10/18/19 23 10:09 AM EST documented as of this encounter Care Teams Touch Up Worker Relationship Specialty Start Date End Date Marianela Jeff FNP 230 [place] [address] PCP - General Family Medicine 03/27/22 06/24/24 Marianela Jeff FNP [address] [place] [address] PCP - General Family Medicine 07/02/24 documented as of this encounter
--- OUTSIDE RECORDS SUMMARY | 2025-07-18 16:52 | XMS_ITS | Clinical Summary ---
Author Organization [facility] Address [address] [address] Phone Care Team Providers Care Go Cart Mechanic Name Role Phone Margo Hernandez NP Primary Care Provider U navailable Allergies Active Allergy Reactions Criticality Noted Date Comments Morphine 06/03/2021 Medications FLUTICASONE FUROATE NASL by Nasal route. Active diphenhydrAMINE (BENADRYL) 25 mg capsule Take 25 mg by mouth nightly at bedtime as needed for itching. Active lidocaine (LIDODERM) 5 % Place 1 patch onto the skin daily. Remove & Discard patch within 12 hours or as directed by MD Active amLODIPine (NORVASC) 10 MG tablet Take 10 mg by mouth daily. Active citalopram (CELEXA) 20 MG tablet Take 20 mg by mouth daily. Active lisinopril (PRINIVIL,ZESTR IL) 40 MG tablet Take 40 mg by mouth daily. Active ketotifen (CHILDREN'S ALAWAY) 0.025 % (0.035 %) ophthalmic solution Place 1 drop into each eye 2 (two) times a day. Active loratadine (CLARITIN) 10 mg tablet Take 10 mg by mouth daily. Active clonazePAM (KLONOPIN) 0.5 MG tablet Take 0.5 mg by mouth 2 (two) times a day as needed for anxiety. Active tiZANidine (ZANAFLEX) 4 MG capsule Take 4 mg by mouth 3 (three) times a day. Active albuterol 90 mcg/actuation inhaler Inhale 2 puffs into the lungs every 6 (six) hours as needed for wheezing. Active furosemide (LASIX) 40 MG tablet Take 40 mg by mouth. Active cholecalciferol (VITAMIN D3) 2,000 unit capsule Take by mouth daily. Active naproxen (NAPROSYN) 500 MG tablet Take 500 mg by mouth 2 (two) times a day with meals. Active oxyCODONE 5 MG immediate release tablet Take 5 mg by mouth every 8 (eight) hours as needed for moderate pain. Active gabapentin (NEURONTIN) 100 MG capsule Take 100 mg by mouth 3 (three) times a day. Active tiZANidine (ZANAFLEX) 4 MG tablet TAKE 1 TABLET BY MOUTH EVERY 8 HOURS NEEDED. NO MORE THAN 3 DOSES IN 24 HOURS 08/18/2021 Active Active Problems Problem Noted Date Diagnosed Date Osteonecrosis of right hip 09/16/2021 Primary osteoarthritis of right hip 09/16/2021 Class 2 severe obesity due t o excess calories with serious comorbidity and body mass index (BMI) of 35.0 to 35.9 in adult 09/16/2021 Social History Tobacco Use Types Packs/Day Years Used Date Smoking Tobacco: Every Day Cigarettes Smokeless Tobacco: Never Alcohol Use Standard Drinks/Week Comments Yes 0 (1 standard drink = 0.6 oz pur e alcohol) rare Education Answer Date Recorded Are you interested in more education? Not on rayo e 01/13/2023 Are you concerned about learning? Not on file 01/13/2023 No 01/13/2023 No 01/13/2023 Digital Access Answer Date Recorded No 02/14/2023 No 02/14/2023 No 02/14/2023 Reliable internet access at home? Not on file 02/14/2023 Device with a working camera? Not on file Comments Unknown Sex and Gender Information Value Date Recorded Sex Assigned at Not on file Legal Sex Female 2:35 PM EDT Gender Identity Not on file Sexual Orientation Not on file Last Filed Vital Signs Vital Sign Reading Time Taken Comments Blood Pressure - - Pulse - - Temperature - - Respiratory Rate - - Oxygen Saturation - - Inhaled Oxygen Concentration - - Weight 93.9 kg (207 lb) 09/16/2021 10:42 AM EST Height 165.1 cm (5' 5 ) 09/16/2021 10:42 AM EST Body Mass Index 34.45 09/16/2021 10:42 AM EST Plan of Treatment Health Maintenance Due Date Last Done Comments CREATININE LEVEL 1966 LIPID PANEL 1966 POTASSIUM LEVEL 1966 DEPRESSION SCREENING 1978 SMOKING Hx and SMOKELESS TOBACCO SCREENING 12/06/1979 HEPATITIS C SCREENING 1984 HIV ONE-TIME SCREENING (18-65 YEARS) 1984 PAP SMEAR 12/06/1987 MAMMOGRAM 2006 PNEUMOCOCCAL VACCINES (50+ years) (2 of 2 - PCV) 06/23/2010 06/23/2009 COLOGUARD 12/06/2011 COLONOSCOPY 12/06/2011 COLORECTAL CANCER SCREENING 12/06/2011 FIT TEST 12/06/2011 FOBT 12/06/2011 SIGMOIDOSCOPY 12/06/2011 VIRTUAL COLONOSCOPY 12/06/2011 Adult Td,Tdap Booster 03/25/2023 03/25/2013 INFLUENZA VACCINE (#1) 2025 , 06/14/2019, 08/21/2018, Additional history exists COVID-19 VACCINE ( - 2024- season) 2025 05/15/2021, 04/24/2021 RSV VACCINE (1 - 1-dose 75+ series) 2041 ZOSTER VACCINES Completed 03/01/2021, 10/29/2019 HEPATITIS A VACCINES Aged Out No long er eligible based on patient's age to complete this topic HIB VACCINES Aged Out No longer eligi ble based on patient's age to complete this topic MENINGOCOCCAL VACCINES (ACWY) Aged Out No longer eligible based on patient's age to complete this topic MENINGOCOCCAL VACCINES (B) Aged Out N o longer eligible based on patient's age to complete this topic Medical Devices Not on file Insurance HEALTH SAFETY NET PARTIAL MEDICARE PART A & B [employer] NET PARTIAL MEDICARE PART A & B [employer] NET PARTIAL MEDICARE PART A & B [employer] SAFETY NET PARTIAL MEDICARE PART A & B HEALTH SAFET[employer] NET PARTIAL MEDICARE PART A & B [employer] NET PARTIAL MEDICARE PART A & B HEALTH SAFETY NET PARTIAL MEDICARE PART A & B [employer] NET PARTIAL MEDICARE PART A & B [facility] SAFETY NET PARTIAL MEDICARE PART A & [place] [id number] Care Teams Go Cart Mechanic Relationship Specialty Start Date End Date Margo Hernandez NP PCP - General 07/27/21 Additional Source Comments The information contained in this document represents components of the legal health record. It is not the complete legal health record.[facility]
--- OUTSIDE RECORDS SUMMARY | 2025-07-18 16:52 | XMS_ITS | Encounter Summary ---
Author Organization [employer] Address [address] [facility] 7[address] [place] [address] Care Team Providers Care Claims Adjustor Name Role Phone [facility] Primary Care Provider [phone] Encounter Details Date Type Department Care Team (Late st Contact Info) Description 07/18/2025 Orders Only GENERIC EXTERNAL DATA DEPARTMENT Provider, Generic External Data Social History Tobacco Use Types Packs/Day Years [...] 08/18/2025 11:30 AM EST Clinical Support [facility] [address] [place] [address] Carley Sesay RN documented as of this encounter Procedures Procedure Name Priority Date/Time Associated Diagnosis Comments HIGH SENSITIVITY TROPONIN I Routine 07/18/2025 3:30 PM EDT CBC WITH AUTO DIFFERENTIAL Routine 07/18/2025 3:30 PM EDT MAGNESIUM Routine 07/18/2025 3:30 PM EDT LIPASE Routine 07/18/2025 3:30 PM EDT COMPREHENSIVE METABOLIC PANEL Routine 07/18/2025 3:30 PM EDT documented in this encounter Results * High Sensitivity Troponin I (07/18/2025 3:30 PM EDT) TROPONIN I HIGH SENSITIVITY 3.4 <3.5 - 17.0 ng/L [facility] Comment:The Jhonson high sens itivity Troponin-I results should beused in conjunction with other diagnostic information suchas ECG, clinical observations and information, and patientsymptoms to aid in the diagnosis of NH. 07/18/2025 3:30 PM EDT 07/18/2025 3:46 PM EDT us Generic External Data Provider LAB BLOOD ORDERAB LES Final Result Performing Organization Address [facility]/ZIP Co de Phone Number [facility] [address] [place] [phone] Lipase (07/18/2025 3:30 PM EDT) Pathologist [facility] Lipase 15 8 - 78 U/L [facility] 07/18/2025 3:30 PM EDT 07/18/2025 3:46 PM EDT Generic External Data Provider LAB BLOOD ORDERAB LES Final Result Performing Organization Address [facility]/ZIP Co de Phone Number [facility] [address] [place] [phone] * Magnesium (07/18/2025 3:30 PM EDT) Pathologist [facility] Magnesium 2.2 1.6 - 2.6 mg/dL [facility] 07/18/2025 3:30 PM EDT 07/18/2025 3:46 PM EDT Generic External Data Provider LAB BLOOD ORDERAB LES Final Result Performing Organization Address [facility] Co de Phone Number [facility] [address] [place] [phone] * (ABNORMAL) Comprehensive Metabolic Panel (07/18/2025 3:30 PM EDT) Pathologist [facility] Sodium 140 135 - 145 mmol/L [facility] Potassium 3.9 3.3 - 5.1 mmol/L [facility] Chloride 107 96 - 108 mmol/L [facility] Carbon Dioxide 26 22 - 29 mmol/L [facility] Anion Gap 11(L) 12 - 20 [facility] Urea Nitrogen (BUN) 14 9 - 16 mg/dL [facility] Creatinine, Serum 0.97 0.5 - 1.4 mg/dL [facility] Creatinine Clr Calc Pharmacy 75.7 [facility] Comment:Provided height and weight: 170.18 cm,97.522 kg.eGFR (calculated from the MDRD study equation) and eCrCl(calculated from the Cockcroft-Gault equation) are based ondifferent parameters and may not yield comparable results.If eCrCl result is absurd, please check patient'sheight/weight. Estimated Glomerular Filt Rate 59 [facility] Comment:Chronic Kidney Disea se: Estimated GFR < 60 mL/min/1.37g9Prwfal Kidney Disease: Estimated GFR < 15 mL/min/1.73m2 Glucose 81 60 - 115 mg/dL [facility] Calcium 9.1 8.4 - 10.2 mg/dL [facility] Bilirubin, Total 0.4 0.0 - 1.0 mg/dL [facility] Aspartate Amino Transferase 19 5 - 31 U/L [facility] Alanine Aminotransferase 6 0 - 31 U/L [facility] Total Protein 6.2(L) 6.5 - 8.0 g/dL [facility] Albumin Level 4.0 3.5 - 5.0 g/dL [facility] Alkaline Phosphatase 54 39 - 117 U/L [facility] 07/18/2025 3:30 PM EDT 07/18/2025 3:46 PM EDT us Generic External Data Provider LAB BLOOD ORDERAB LES Final Result [facility] [address] [place] [phone] * (ABNORMAL) CBC auto differential (07/18/2025 3:30 PM EDT) White Blood Count 7.9 4.8 - 10.8 X10*3/uL [facility] Red Blood Count 4.01(L) 4.20 - 5.50 X10*6/uL [facility] Hemoglobin 12.0 12.0 - 16.0 g/dl [facility] Hematocrit 36.2(L) 37.0 - 47.0 % [facility] Mean Corpuscular Volume 90.3 80.0 - 98.0 fL [facility] Mean Corpuscular Hemoglobin 29.9 27.0 - 33.0 pg [facility] Mean Corpuscular HGB Conc 33.1 31.0 - 35.0 g/dl [facility] Red Cell Distribution Width 12.9 11.0 - 16.0 % [facility] Platelet Count 225 160 - 400 X10*3/uL [facility] Mean Platelet Volume 10.4 9.4 - 12.3 fL [facility] Neutrophils Percent Auto 67.7 45 - 73 % [facility] Imm Gran Pct Auto 0.4 0.0 - 0.4 % [facility] Lymphocytes Percent Auto 22.7 20 - 40 % [facility] Monocytes Percent Auto 6.4 2 - 11 % [facility] Eosinophils Percent Auto 2.2 0 - 4 % [facility] Basophils Percent Auto 0.6 0 - 2 % [facility] NRBC Pct Auto 0.0 0.0 - 0.2 /100WBC [facility] Neutrophils Absolute Auto 5.3 2.0 - 8.3 x10*3/uL [facility] Imm Gran Abs Auto 0.03 0.00 - 0.03 X10*3/uL [facility] Lymphocytes Absolute Auto 1.8 1.2 - 4.9 X10*3/uL [facility] Monocytes Absolute Auto 0.5 0.1 - 1.2 X10*3/uL [facility] Eosinophils Absolute Auto 0.2 0.0 - 0.4 X10*3/uL [facility] Basophils Absolute Auto 0.1 0.0 - 0.2 X10*3/uL [facility] NRBC Abs Auto 0.000 0.0 - 0.012 X10*3/uL [facility] 07/18/2025 3:30 PM EDT 07/18/2025 3:46 PM EDT us Generic External Data Provider LAB BLOOD ORDERAB LES Final Result [facility] [address] [place] [phone] documented in this encounter Visit Diagnoses Not on filedocumented in this encounter Additional Health Concerns Assessment Noted Time PHQ-9 Depression Total Score: 11 025 9:52 AM EDT documented as of this encounter Care Teams Claims Adjustor Relationship Specialty Start Date End Date Marianela Jeff FNP [address] [place] [phone] PCP - General Family Medicine 07/02/24 documented as of this encounter
--- OUTSIDE RECORDS SUMMARY | 2025-07-18 16:52 | XMS_ITS | Encounter Summary ---
Author Organization [employer] Address [address] [facility] [address] [place] [address] Care Team Providers Care Mechanical Drafter Name Role Phone [facility] Primary Care Provider [phone] Reason for Visit * Reason Onset Date Comments Med Refill 12/20/2024 Encounter Details Date Type Department Care Team ([facility] st Contact Info) Description 12/20/2024 Refill [facility] [address] [place] [address] [facility] [address] [place] [address] Primary osteoarthritis of right hip Social History [...] 08/18/2025 11:30 AM EST Clinical Support [facility] [address] [place] [address] Carley Sesay RN documented as of this encounter Visit Diagnoses Diagnosis Primary osteoarthritis of right hip documented in this encounter Additional Health Concerns Assessment Noted Time PHQ-9 Depression Total Score: 3 09/09/20 24 1:14 PM EST documented as of this encounter Care Teams Mechanical Drafter Relationship Specialty Start Date End Date Marianela Jeff FNP [address] [place] [address] PCP - General Family Medicine 07/02/24 documented as of this encounter
--- OUTSIDE RECORDS SUMMARY | 2025-07-18 16:52 | XMS_ITS | Encounter Summary ---
Author Organization [employer] Address [address] [place] [address] Care Team Providers Care Rug Cleaner Helper Name Role Phone [facility] Primary Care Provider [phone] [facility] Primary Care Provider Reason for Visit * Reason Onset Date Comments Med Refill 05/04/2023 Encounter Details Date Type Department Care Team ([facility] Contact Info) Description 05/04/[address] [address] [facility] [address] [place] [address] Onychomycosis Social History Tobacco Use Types Packs/Day Years [...] Description 08/18/2025 11:30 AM EST Clinical Support [facility] [address] [place] [phone] Carley Sesay, RN documented as of this encounter Visit Diagnoses Diagnosis Onychomycosis Dermatophytosis of nail documented in this encounter Additional Health Concerns Assessment Noted Time PHQ-9 Depression Total Score: 0 10/18/19 23 10:09 AM EST documented as of this encounter Care Teams Rug Cleaner Helper Relationship Specialty Start Date End Date Marianela Jeff FNP [address] [place] [address] PCP - General Family Medicine 03/27/22 06/24/24 Marianela Jeff FNP [address] [address] PCP - General Family Medicine 07/02/24 documented as of this encounter
--- OUTSIDE RECORDS SUMMARY | 2025-07-18 16:52 | XMS_ITS | Encounter Summary ---
Author Organization [employer] Address [address] [place] [address] Care Team Providers Care Upper Inspector Name Role Phone [facility] Primary Care Provider [phone] [facility] Primary Care Provider [phone] Reason for Visit * Reason Comments Med Refill Encounter Details Date Type Department Care Team (Late Contact Info) Description 05/05/2023 Refill [facility] MED[facility]INE [address] [place] [phone] [address] Onychomycosis Social History Tobacco Use Types Packs/Day [...] 11:30 AM EST Clinical Support [facility] [address] [place] [address] [phone] Carley Sesay, JAYLENE documented as of this encounter Visit Diagnoses Diagnosis Onychomycosis Dermatophytosis of nail documented in this encounter Additional Health Concerns Assessment Noted Time PHQ-9 Depression Total Score: 0 10/18/19 23 10:09 AM EST documented as of this encounter Care Teams Upper Inspector Relationship Specialty Start Date End Date [facility] [address] [place] [address] PCP - General Family Medicine 03/27/22 06/24/24 [facility] [address] [place] [address] PCP - General Family Medicine 07/02/24 documented as of this encounter
--- OUTSIDE RECORDS SUMMARY | 2025-07-18 16:52 | XMS_ITS | Encounter Summary ---
Author Organization [employer] Address [address] [place] [address] Care Team Providers Care Technical Service Rep Name Role Phone [place] [facility] Primary Care Provider [phone] [facility] Primary Care Provider [phone] Reason for Visit * Reason Comments Med Refill Encounter Details Date Type Department Care Team (Late st Contact Info) Description 04/29/2023 Refill [facility] [address] [place] [address] [facility] [address] [place] [address] Social History Tobacco Use Types Packs/Day Years [...] Description 08/18/2025 11:30 AM EST Clinical Support [facility] [address] [place] [address] [phone] Shama, Carley, RN documented as of this encounter Visit Diagnoses Not on filedocumented in this encounter Additional Health Concerns Assessment Noted Time PHQ-9 Depression Total Score: 0 10/18/19 23 10:09 AM EST documented as of this encounter Care Teams Technical Service Rep Relationship Specialty Start Date End Date Marianela Jeff FNP [address] [place] [address] PCP - General Family Medicine 03/27/22 06/24/24 Marianela Jeff FNP [address] [place] [address] PCP - General Family Medicine 07/02/24 documented as of this encounter
--- OUTSIDE RECORDS SUMMARY | 2025-07-18 16:52 | XMS_ITS | Encounter Summary ---
Author Organization [employer] Address [address] [facility] [address] [place] [address] Care Team Providers Care Sports Athletic Trainer Name Role Phone [place] [facility] Primary Care Provider Reason for Visit * Reason Comments Med Refill Encounter Details Date Type Department Care Team ([facility] st Contact Info) Description 09/12/2024 Refill [facility] [address] [place], [place] [phone] [facility] [address] [place] [address] Primary osteoarthritis of right hip Social History [...] Description 08/18/2025 11:30 AM EST Clinical Support [facility] [address] [place] [phone] Carley Sesay RN documented as of this encounter Visit Diagnoses Diagnosis Primary osteoarthritis of right hip documented in this encounter Additional Health Concerns Assessment Noted Time PHQ-9 Depression Total Score: 3 09/09/20 24 1:14 PM EST documented as of this encounter Care Teams Sports Athletic Trainer Relationship Specialty Start Date End Date Marianela Jeff FNP [address] [place] [address] PCP - General Family Medicine 07/02/24 documented as of this encounter
--- OUTSIDE RECORDS SUMMARY | 2025-07-18 16:52 | XMS_ITS | Encounter Summary ---
Author Organization [employer] Address [address] [facility] [address] [place] [address] Care Team Providers Care Counter Top Assembler Name Role Phone [facility] Primary Care Provider [phone] Reason for Visit * Reason Onset Date Comments Med Refill 12/09/2024 Encounter Details Date Type Department Care Team ([facility] st Contact Info) Description 12/09/2024 Refill [facility] [address] [place] [address] Name, MD [place] [address] [place] [address] Social History Tobacco Use Types Packs/Day Years [...] Description 08/18/2025 11:30 AM EST Clinical Support [facility] [address] [place] [phone] Carley Sesay RN documented as of this encounter Visit Diagnoses Not on filedocumented in this encounter Additional Health Concerns Assessment Noted Time PHQ-9 Depression Total Score: 3 09/09/20 24 1:14 PM EST documented as of this encounter Care Teams Counter Top Assembler Relationship Specialty Start Date End Date Marianela Jeff FNP [address] [place] [address] PCP - General Family Medicine 07/02/24 documented as of this encounter
[2025-07-18 18:27] VITALS: BP 166/97; PULSE 57; RESP 16; TEMP 36.6; O2SAT 96
[2025-07-18 18:29] VITALS: BP 166/97; PULSE 57; RESP 16; TEMP 36.6; O2SAT 96
== END 2025-07-18 18:47 | disposition home or self-care (01) ==
PROVIDERS: Physician Assistant Medical; Emergency Provider Emergency Medicine Emergency Medical Services; PCP Registered Nurse
DX: I44.0 Atrioventricular block, first degree (principal); R94.31 Abnormal electrocardiogram [ECG] [EKG]; I10 Essential (primary) hypertension; Z79.899 Other long term (current) drug therapy
CPT/HCPCS: 36415; 80053; 83690; 83735; 84484; 85025; 93005; 99283; 99284

== ENCOUNTER → 2025-07-18 14:56 | Outpatient (BNV) | payer MEDICARE, SELFPAY | PROVIDERS: Emergency Provider Emergency Medicine Emergency Medical Services; PCP Registered Nurse; Visit Provider Internal Medicine | DX: I44.0 Atrioventricular block, first degree (principal); I25.2 Old myocardial infarction | CPT/HCPCS: 93010 ==